=== PATIENT | female | born 1985 | race African-American/Black ===

== ENCOUNTER 2020-07-10 15:09 | Emergency (ER) | payer OTHER, SELFPAY ==
--- NOTE | ~2020-07-10 | XR_ITS ---
EXAMINATION: XR chest 2V DATE: 07/10/2020 17:40 INDICATION: Right thoracic back pain TECHNIQUE: PA and lateral views of the chest are obtained. COMPARISON: 09/10/2017 FINDINGS: The lungs are free of acute opacities. There is no pleural effusion or pneumothorax. The ca rdiomediastinal silhouette is normal. The visualized bones and soft tissues are unremarkable. Surgica l clips in the right upper quadrant are likely from prior cholecystectomy. IMPRESSION: 1. No acute cardiopulmonary abnormality. Reviewed, dictated and finalized at location A.
[2020-07-10 15:18] VITALS: BP 143/85; PULSE 78; RESP 14; TEMP 36.3; O2SAT 99
[2020-07-10 17:03] LABS: Basophils Percent Auto 0.4 % (0.2-1.2); Eosinophils Absolute Auto 0.3 K/mm3 (0-0.3); Eosinophils Percent Auto 3.1 % (0-4.4); Hematocrit 42.4 % (37.0-47.0); Hemoglobin 14.1 g/dL (12.0-15.0); Immature Granulocyte Absolute 0.03 K/mm3 (0.00-0.031); Immature Granulocyte Percent A 0.3 % (0-0.5); Lymphocytes Absolute Auto 3.49 K/mm3 (0.9-3.2); Lymphocytes Percent Auto 37.3 % (18.3-44.2); Mean Corpuscular HGB Conc 33.3 g/dl (32-36); Mean Corpuscular Hemoglobin 30.4 pg (26-34); Mean Corpuscular Volume 91.4 fl (80-100); Mean Platelet Volume 11.1 fl (7.4-10.4); Monocytes Absolute Auto 0.4 K/mm3 (0.1-0.6); Monocytes Percent Auto 4.5 % (2.6-8.5); Neutrophils Absolute Auto 5.1 K/mm3 (1.3-6.7); Neutrophils Percent Auto 54.4 % (45.5-73.1); Platelet Count Result 272 k/mm3 (150-375); Red Blood Count 4.64 M/mm3 (4.2-5.4); Red Cell Distribution Width 12.4 % (11.5-14.5); White Blood Count 9.4 K/mm3 (4.5-10.0)
[2020-07-10 17:10] LABS: Add Urine Microscopic? YES; Appearance Urine Cloudy (Clear); Bilirubin Urine Negative (Negative); Blood Urine Negative (Negative); Color Urine Yellow (Yellow); Glucose Urine UA Negative (Negative); Ketones Urine Trace mg/dL (Negative); Leukocyte Esterase Ur Negative LEU/UL (Negative); Mucus Urine Rare /lpf; Nitrate Urine Negative (Negative); Protein Urine 1+ mg/dL (Negative); RBC Urine 0-2 /hpf (0-2); Specific Grav Ur 1.021 (1.001-1.035); Squamous Epithelial Cell Urine Moderate /hpf (Few); WBC Urine 0-3 /hpf
[2020-07-10 17:14] LABS: Alanine Aminotransferase 68 U/L (4-35); Albumin Level 4.5 g/dL (3.5-5.1); Alkaline Phosphatase 68 U/L (38-126); Anion Gap 5 mmol/L (8-16); Aspartate Amino Transferase 50 U/L (14-36); Bilirubin,Total 0.4 mg/dL (0.2-1.3); Blood Urea Nitrogen 11 mg/dL (7-17); Calcium 9.5 mg/dL (8.4-10.2); Carbon Dioxide 30 mmol/L (22-30); Chloride 103 mmol/L (98-107); Estimated CRCL calculation 120 ml/min; Estimated Glomerular Filt Rate > 60; Glucose 83 mg/dL (65-105); Potassium 3.9 mmol/L (3.4-5.0); Sodium 138 mmol/L (137-145)
--- NOTE | 2020-07-10 17:31 | ED.BACK ---
HPI - Back Pain/Injury General Chief Complaint: Back Pain/Injury Stated Complaint: neck pain Time Seen by Provider: 07/10/20 16:05 Source: patient Mode of arrival: ambulatory Limitations: no limitations History of Present Illness HPI Narrative: Patient is a 35-year-old female who presents complaining of right mid back pain x2 weeks. She denies known injury. She denies taking [id number] medications. She reports a history of pyelonephritis in the past. She denies urinary complaints at this time, nausea, vomiting or diarrhea. She reports increased pain with movement. She denies radiation of pain to buttocks or leg, she denies loss of bowel or bladder control. Related Data Allergies Allergy/AdvReac Type Severity Reaction Status Date / Time No Known Allergies Allergy Verified 07/10/20 16:02 Review of Systems Review of Systems: Narrative: CONSTITUTIONAL: Denies fever, chills, or sweats. EYES: Denies visual changes, redness, or discharge. ENT: Denies rhinorrhea, congestion, sore throat, or otalgia. CARDIOVASCULAR: Denies chest pain, palpitations, or edema. RESPIRATORY: Denies cough or dyspnea. GASTROINTESTINAL: Denies abdominal pain, nausea, vomiting, or diarrhea. GENITOURINARY: Denies dysuria or hematuria. SKIN: Denies rash or itching. MUSCULOSKELETAL: Reports right-sided back pain, no radiation NEUROLOGIC: Denies headache, numbness, dizziness, or weakness. PSYCHIATRIC: Denies anxiety or depression. [facility] Past Medical History Medical History (Updated 07/10/20 @ 18:09 by ARLENE Liu) GERD (gastroesophageal reflux disease) Pyelonephritis Per patient UTI (urinary tract infection) Surgical History Surgical History (Updated 07/10/20 @ 17:39 by ARLNEE Liu) H/O tubal ligation H/O: X4 Hx of cholecystectomy Family History Family History (Updated 07/10/20 @ 17:39 by ARLENE Liu) Grandparent Cerebrovascular accident Social History Social History (Updated 07/10/20 @ 17:39 by ARLENE Liu) Smoking status: Current every day smoker Alcohol intake: current Alcohol use details: Reports recent loss of and has been drinking daily Substance use: never Living arrangements: with family Comments At the time of signature, I have reviewed and agree with nursing past medical, surgical, social, and family history unless otherwise noted. Please see nursing chart for further information. There is no relevant family history pertinent to the presenting complaint. Exam Narrative: Exam Narrative: GENERAL: Well-appearing, well-nourished, and in no acute distress. HEAD: Normocephalic, atraumatic. EYES: No redness or drainage. ENT: Mucous membranes pink and moist. . CHEST: No respiratory distress. Clear to auscultation. HEART: Regular rate and rhythm. No murmur appreciated. Normal peripheral pulses. GI: Soft, nontender without rebound, or guarding. No distention. MUSCULOSKELETAL: Tenderness with palpation at the right thoracic back and CVA EXTREMITIES: Normal range of motion. No edema. SKIN: Warm, dry, no rash. NEURO: No focal deficits. Alert and oriented x3. Gait steady. PSYCH: Normal affect. No signs of depression or anxiety. Course Vital Signs Vital signs: Vital Signs Temperature 36.3 C L 07/10/20 15:18 Pulse Rate 78 07/10/20 15:18 Respiratory Rate 14 07/10/20 15:18 Blood Pressure 143/85 H 07/10/20 15:18 Pulse Oximetry 99 07/10/20 15:18 Temperature 36.3 C L 07/10/20 15:18 Pulse Rate 78 07/10/20 15:18 Respiratory Rate 14 07/10/20 15:18 Blood Pressure 143/85 H 07/10/20 15:18 Pulse Oximetry 99 07/10/20 15:18 Reviewed-patient is informed that they may have pre-hypertension or hypertension based on a blood pressure reading. I recommend the patient call the primary care provider listed on their discharge instructions or a physician of their choice this week to arrange follow-up for further evaluation of possible
[2020-07-10] MEDS: KETOROLAC 30 MG/ML VIAL (*BKC) IM (17:53)
[2020-07-10 18:13] VITALS: BP 142/87; PULSE 85; RESP 16; O2SAT 100
== END 2020-07-10 18:18 | disposition home or self-care (01) ==
PROVIDERS: Emergency Provider Nurse Practitioner; PCP Nurse Practitioner Family
DX: M54.6 Pain in thoracic spine (principal); K21.9 Gastro-esophageal reflux disease without esophagitis; Z87.440 Personal history of urinary (tract) infections; Z87.891 Personal history of nicotine dependence
CPT/HCPCS: 36415; 71046; 80053; 81001; 81025; 85025; 96372; 99283; J1885

== ENCOUNTER 2021-11-29 18:54 | Emergency (ER) | payer OTHER, SELFPAY ==
[2021-11-29 19:03] VITALS: BP 149/92; PULSE 78; RESP 18; TEMP 36.9; O2SAT 100
--- NOTE | 2021-11-29 19:47 | ED.FEMALEGU ---
HPI - Female Genitourinary General Stated complaint: possible uti Time Seen by Provider: 11/29/21 19:20 Source: patient Mode of arrival: ambulatory Limitations: no limitations History of Present Illness HPI Narrative: Ms. Topete is a 36-year-old female patient presenting to the clinic today with complaints of possible UTI. She reports some burning with urination but states that it feels like its within the vagina. She denies any vaginal discharge. She is concerned that she may have a sexually transmitted infection. Related Data Allergies Allergy/AdvReac Type Severity Reaction Status Date / Time No Known Allergies Allergy Verified 07/10/20 16:02 Review of Systems Review of Systems: Pertinent positives per HPI. Patient denies any fever, chills, rash, headache, visual changes, dizziness, cough, runny nose, sore throat, shortness of breath, chest pain, palpitations, nausea, vomiting, diarrhea, constipation, abdominal pain PMFSH Past Medical History Medical History GERD (gastroesophageal reflux disease) Pyelonephritis Per patient UTI (urinary tract infection) Surgical History Surgical History H/O tubal ligation H/O: X4 Hx of cholecystectomy Family History Family History Grandparent Cerebrovascular accident Social History Social History Smoking status: Current every day smoker Alcohol intake: current Alcohol use details: Reports recent loss of and has been drinking daily Substance use: never Comments At the time of my signature, I reviewed and agree with the nursing past medical, surgical, social, and family history. There is no relevant family history pertinent to the patient complaint. Exam Narrative: General: Well-developed, well nourished, in no apparent distress Head: Normocephalic, atraumatic. Cardio: Regular rate and rhythm, s1 and s2 normal, no murmur appreciated. Resp: Clear to auscultation bilaterally, no rhonchi, rales, wheezing or rubs. Abdomen: Soft, pliable, bowel sounds present in all quadrants, non-tender to palpation, no CVAT tenderness. : Pelvic exam performed with Marie at bedside. Verbal consent obtained from patient. Normal external female genitalia without lesions or masses, Urinary meatus: patent without discharge, Vagina: No lesions, masses, scant amount of blood pelvic vault Cervix: pink without mass, lesions, discharge, or tenderness. Adnexa: without palpable mass or tenderness. Course Course Emergency Course: Portions of this record may have been created with voice recognition software. Level of Care: Express Care Visit Vital Signs Vital signs: Vital Signs Temperature 36.9 C 11/29/21 19:03 Pulse Rate 78 11/29/21 19:03 Respiratory Rate 18 11/29/21 19:03 Blood Pressure 149/92 H 11/29/21 19:03 Pulse Oximetry 100 11/29/21 19:03 Oxygen Delivery Room Air 11/29/21 19:03 Temperature 36.9 C 11/29/21 19:03 Pulse Rate 78 11/29/21 19:03 Respiratory Rate 18 11/29/21 19:03 Blood Pressure 149/92 H 11/29/21 19:03 Pulse Oximetry 100 11/29/21 19:03 Oxygen Delivery Room Air 11/29/21 19:03 Vital signs reviewed MDM - Female Genitourinary MDM Narrative Medical decision making narrative: At the time of visit patient is resting comfortably on the exam table. UA was negative for any sign of infection. We will get STI testing completed in the clinic today-GC, chlamydia, trichomonas. Supportive measures were discussed with the patient she voiced understanding of discharge instruction. Lab Data Labs: Urine Glucose Negative Reference Range: Negative Urine Bilirubin Negative
== END 2021-11-29 19:57 | disposition home or self-care (01) ==
PROVIDERS: Emergency Provider Nurse Practitioner Family; PCP Nurse Practitioner Family
DX: R30.0 Dysuria (principal); R10.2 Pelvic and perineal pain; F17.200 Nicotine dependence, unspecified, uncomplicated; K21.9 Gastro-esophageal reflux disease without esophagitis
CPT/HCPCS: 81003; 87491; 87591; 87661; 99214; G0463

== ENCOUNTER 2022-03-03 16:41 | Emergency (ER) | payer OTHER, SELFPAY ==
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
[2022-03-03 17:10] VITALS: BP 149/94; PULSE 77; RESP 16; TEMP 36.1; O2SAT 100
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
[2022-03-03] MEDS: IBUPROFEN 400 MG TABLET 800 MG PO (19:03)
== END 2022-03-03 19:05 | disposition home or self-care (01) ==
PROVIDERS: Emergency Provider General Practice; PCP Nurse Practitioner Family
DX: S90.32XA Contusion of left foot, initial encounter (principal); K21.9 Gastro-esophageal reflux disease without esophagitis; Z87.442 Personal history of urinary calculi; F17.200 Nicotine dependence, unspecified, uncomplicated; V03.00XA Pedestrian on foot injured in collision with car, pick-up truck or van in nontraffic accident, initial encounter
CPT/HCPCS: 73630; 99283; A9270

== ENCOUNTER 2022-03-06 09:40 | Emergency (ER) | payer OTHER, SELFPAY ==
[2022-03-06 09:46] VITALS: BP 158/98; PULSE 87; RESP 18; TEMP 36.3; O2SAT 100
[2022-03-06 11:30] VITALS: O2SAT 99
[2022-03-06 11:33] LABS: Strep Group A RT-PCR Not Detected (Negative)
[2022-03-06 11:34] LABS: Influenza A QL RT-PCR Negative (Negative); Influenza B QL RT-PCR Negative (Negative); SARS-CoV-2 RNA PCR Negative
--- NOTE | 2022-03-06 11:34 | ED.URI ---
HPI - URI/Sore Throat General Chief Complaint: Upper Respiratory Infection Stated Complaint: ST Time Seen by Provider: 03/06/22 10:27 Source: patient Mode of arrival: ambulatory Limitations: no limitations History of Present Illness HPI Narrative: Patient is a 36-year-old female who presents to the ED with report of sore throat. Patient reports she began feeling unwell with slight sore throat last night. She developed a worsening sore throat this morning, which prompted her presentation. Patient reports she was exposed to a coworker who tested positive for COVID-19 yesterday. Patient is vaccinated for COVID. She is not vaccinated for influenza. She denies any difficulty swallowing, just has pain with this. Denies difficulty breathing. Denies cough, congestion, rhinorrhea. She has had chills, but no documented fever. Related Data Allergies Allergy/AdvReac Type Severity Reaction Status Date / Time No Known Allergies Allergy Verified 07/10/20 16:02 Review of Systems Review of Systems: CONSTITUTIONAL: Reports chills. Denies fever. ENT: Reports sore throat. Denies rhinorrhea, congestion, dyphagia. CARDIOVASCULAR: Denies chest pain. RESPIRATORY: Denies cough or dyspnea. GASTROINTESTINAL: Denies abdominal pain, nausea, vomiting. All systems reviewed & are unremarkable except as noted in HPI and below PMFSH Past Medical History Medical History GERD (gastroesophageal reflux disease) Pyelonephritis Per patient UTI (urinary tract infection) Surgical History Surgical History H/O tubal ligation H/O: X4 Hx of cholecystectomy Family History Family History Grandparent Cerebrovascular accident Social History Social History Smoking status: Current every day smoker Alcohol intake: current Alcohol use details: Reports recent loss of and has been drinking daily Substance use: never Exam Narrative: GENERAL: Well appearing, morbidly obese, non-toxic, in no acute distress. HEAD: Normocephalic, atraumatic. THROAT: Airway patent. Mild posterior pharynx erythema. Few small petechial hemorrhages to uvula. Minimal tonsillar hypertrophy, no asymmetry. One small exudate to L tonsil. NECK: Supple. No adenopathy, no masses. RESPIRATORY: Airway patent, respirations nonlabored. Clear to auscultation bilaterally, no rales, rhonchi, wheezing. CARDIOVASCULAR: Regular rate and rhythm without murmurs, rubs, or gallops. Peripheral pulses 2+ and equal bilaterally. MUSCULOSKELETAL: Moves all extremities. Strength/ROM intact without gross deformities. SKIN: Warm, dry, normal color. No rashes. NEURO: A&O X3. Speech clear. Cranial nerves II-XII grossly intact. Steady gait. No ataxic movements. PSYCHIATRIC: Appropriate mood and affect. Normal interaction. Course Vital Signs Vital signs: Vital Signs Temperature 97.4 F L 03/06/22 09:46 Pulse Rate 87 03/06/22 09:46 Respiratory Rate 18 03/06/22 09:46 Blood Pressure 158/98 H 03/06/22 09:46 Pulse Oximetry 100 03/06/22 09:46 Oxygen Delivery Room Air 03/06/22 09:46 Temperature 97.4 F L 03/06/22 09:46 Pulse Rate 82 03/06/22 12:06 Respiratory Rate 18 03/06/22 12:06 Blood Pressure 137/87 03/06/22 12:06 Pulse Oximetry 97 03/06/22 12:06 Oxygen Delivery Room Air 03/06/22 11:30 MDM - URI/Sore Throat MDM Narrative Medical decision making narrative: Patient presented to ED with 1 day history of sore throat. Recent exposure to COVID-19. No other symptoms thus far. Vitals stable upon arrival. Afebrile. BP improved throughout ED stay without intervention. No signs of airway compromise on exam. Patient tolerating secretions. Patient's testing for COVID, flu, strep negative. She will be dischar
[2022-03-06] MEDS: LIDOCAINE HCL 2% VISC SOLN 15 ML UDC PO (11:47)
[2022-03-06 12:06] VITALS: BP 137/87; PULSE 82; RESP 18; O2SAT 97
== END 2022-03-06 12:07 | disposition home or self-care (01) ==
PROVIDERS: Emergency Medicine; Emergency Provider Physician Assistant; PCP Nurse Practitioner Family
DX: J02.9 Acute pharyngitis, unspecified (principal); Z20.822 Contact with and (suspected) exposure to COVID-19; K21.9 Gastro-esophageal reflux disease without esophagitis; Z87.440 Personal history of urinary (tract) infections
CPT/HCPCS: 87636; 87651; 99283

== ENCOUNTER 2022-03-07 16:15 | Emergency (ER) | payer OTHER, SELFPAY ==
[2022-03-07 16:28] VITALS: BP 138/73; PULSE 88; RESP 20; TEMP 36.9; O2SAT 99
--- NOTE | 2022-03-07 16:36 | ED.URI ---
HPI - URI/Sore Throat General Chief Complaint: Upper Respiratory Infection Stated Complaint: Sore Throat Time Seen by Provider: 03/07/22 17:00 Source: patient and RN notes reviewed Mode of arrival: ambulatory Limitations: no limitations History of Present Illness HPI Narrative: 36-year-old female presents concern for 2 day history of sore throat, painful swallowing, headache. Reports she was seen in the emergency room yesterday and tested negative for strep, flu, COVID. She reports pain is a 10/10. She denies known sick contacts. MD elicited complaint: sore throat Related Data Home Medications Medication Instructions Recorded Confirmed cyanocobalamin (vitamin B-12) 500 500 mcg DAILY 03/07/22 03/07/22 mcg tablet metformin 500 mg tablet,extended 500 mg PO BID 03/07/22 03/07/22 release 24 hr Allergies Allergy/AdvReac Type Severity Reaction Status Date / Time No Known Allergies Allergy Verified 03/07/22 16:44 Review of Systems Review of Systems: CONSTITUTIONAL: Reports malaise. Denies chills, sweats, or fever. EYES: Denies visual changes, redness, or discharge. ENT: Denies rhinorrhea, congestion, sinus pain, otalgia. Reports sore throat. CARDIOVASCULAR: Denies chest pain, palpitations, or edema. RESPIRATORY: Denies cough. Denies dyspnea. GASTROINTESTINAL: Denies abdominal pain, nausea, vomiting, diarrhea SKIN: Denies rash or itching. MUSCULOSKELETAL: Reports myalgia. NEUROLOGIC: Reports headache. All systems reviewed & are unremarkable except as noted in HPI and below PMFSH Past Medical History Medical History GERD (gastroesophageal reflux disease) Pyelonephritis Per patient UTI (urinary tract infection) Surgical History Surgical History H/O tubal ligation H/O: X4 Hx of cholecystectomy Family History Family History Grandparent Cerebrovascular accident Social History Social History Smoking status: Current every day smoker Alcohol intake: current Alcohol use details: Reports recent loss of and has been drinking daily Substance use: never Comments At time of signature, agree with nursing past medical, surgical, social and family history. There is no relevant family history pertinent to the presenting complaint Exam Narrative: GENERAL: Nontoxic-appearing and in no acute distress. HEAD: Normocephalic EYES: PERRLA, conjunctivae clear ENT: Nares clear, no discharge. Mucous membranes moist. TM pearly novak with dull light reflex bilaterally; no tragal tenderness. Oropharynx erythematous without lesions. Tonsils enlarged 3+ with copious white exudate, no drooling, no hoarseness, no trismus, uvula midline. NECK: Supple. No lymphadenopathy CHEST: Clear to auscultation, breath sounds equal. No wheezing, rhonchi, rales, or stridor. No respiratory distress, speaks in full sentences. HEART: Regular rate and rhythm. No murmur heard. SKIN: Warm, dry, no rash. NEURO: Alert and oriented x3. PSYCH: Normal mood and affect Course Course Emergency Course: Patient is aware of diagnosis, understands and agrees to treatment plan. Anticipatory guidance given. Patient agrees to follow-up as directed and is aware of reasons to seek care at the emergency department. Portions of this record may have been created with voice recognition software Level of Care: Express Care Visit Vital Signs Vital signs: Vital Signs Temperature 98.5 F 03/07/22 16:28 Pulse Rate 88 03/07/22 16:28 Respiratory Rate 20 03/07/22 16:28 Blood Pressure 138/73 03/07/22 16:28 Pulse Oximetry 99 03/07/22 16:28 Oxygen Delivery Room Air 03/07/22 16:28 Temperature 98.5 F 03/07/22 16:28 Pulse Rate 88 03/07/22 16:28 Respiratory Rate 20 03/07
== END 2022-03-07 17:12 | disposition home or self-care (01) ==
PROVIDERS: Emergency Provider Nurse Practitioner; PCP Nurse Practitioner Family
DX: J03.90 Acute tonsillitis, unspecified (principal); Z20.822 Contact with and (suspected) exposure to COVID-19; F17.200 Nicotine dependence, unspecified, uncomplicated; K21.9 Gastro-esophageal reflux disease without esophagitis
CPT/HCPCS: 36416; 86308; 87081; 87426; 87880; 99213; C9803; G0463

== ENCOUNTER 2022-11-21 20:31 | Emergency (ER) | payer OTHER, SELFPAY ==
[2022-11-21] VITALS (7 sets, daily range): BP systolic 149–151; BP diastolic 94–95; PULSE 84; RESP 16; TEMP 36.2; O2SAT 98–100
--- NOTE | ~2022-11-21 | CT_ITS ---
EXAMINATION: CT abdomen pelvis w con DATE: 11/21/2022 22:55 INDICATION: Generalized abdominal TECHNIQUE: Computed tomography (CT) of the abdomen and pelvis was performed with 100 mL Omnipaque-350 intravenous contrast. Automated exposure control and iterative reconstruction technique were employe d. The dose-length product was 1597.98 mGy-cm. COMPARISON: 10/21/2016. FINDINGS: Lower thorax: Unremarkable Liver: Simple left lobe cyst. Subcentimeter hypodensities that are too small to characterize but also likely represent cysts. Biliary/Gallbladder: Gallbladder is absent. No bile duct dilation. Pancreas: No mass or duct dilation. Spleen: Normal. Adrenals:No mass. Kidneys: Mild right cortical scarring. Simple left midpole cyst. No calcification or suspicious mass. No hydronephrosis. GI tract: No small or large bowel dilation. Normal appendix. Mesentery/Peritoneum: No ascites, mass, or free air. Retroperitoneum: No mass. Pelvis: Pelvic organs are within normal limits. Soft Tissues: Soft tissues and body wall unremarkable. Bones: No acute osseous finding. IMPRESSION: No acute abdominopelvic process detected. Reviewed, dictated and finalized at location K.
[2022-11-21 21:04] LABS: Basophils Absolute Auto 0.1 K/mm3 (0.0-0.1); Basophils Percent Auto 0.4 % (0.2-1.2); Eosinophils Absolute Auto 0.4 K/mm3 (0-0.3); Eosinophils Percent Auto 3.3 % (0-4.4); Hematocrit 39.6 % (37.0-47.0); Hemoglobin 12.9 g/dL (12.0-15.0); Immature Granulocyte Absolute 0.03 K/mm3 (0.00-0.031); Immature Granulocyte Percent A 0.3 % (0-0.5); Lymphocytes Absolute Auto 3.88 K/mm3 (0.9-3.2); Lymphocytes Percent Auto 34.9 % (18.3-44.2); Mean Corpuscular HGB Conc 32.6 g/dl (32-36); Mean Corpuscular Hemoglobin 29.4 pg (26-34); Mean Corpuscular Volume 90.2 fl (80-100); Monocytes Absolute Auto 0.6 K/mm3 (0.1-0.6); Monocytes Percent Auto 5.5 % (2.6-8.5); Neutrophils Absolute Auto 6.2 K/mm3 (1.3-6.7); Neutrophils Percent Auto 55.6 % (45.5-73.1); Platelet Count Result 254 k/mm3 (150-375); Red Blood Count 4.39 M/mm3 (4.2-5.4); Red Cell Distribution Width 12.8 % (11.5-14.5); White Blood Count 11.1 K/mm3 (4.5-10.0)
[2022-11-21 21:15] LABS: Appearance Urine Cloudy (Clear); Bacteria Urine 1+ /hpf; Bilirubin Urine Negative (Negative); Blood Urine Negative (Negative); Color Urine Dark Yellow (Yellow); Glucose Urine UA Negative (Negative); Ketones Urine Negative (Negative); Leukocyte Esterase Ur Negative LEU/UL (Negative); Nitrate Urine Negative (Negative); Non Pathogenic Casts 0-2; Protein Urine 1+ mg/dL (Negative); RBC Urine 0-2 /hpf (0-2); Specific Grav Ur 1.026 (1.001-1.035); Squamous Epithelial Cell Urine Moderate /hpf (Few)
[2022-11-21 21:17] LABS: Add Urine Microscopic? YES
[2022-11-21 21:21] LABS: Alanine Aminotransferase 36 U/L (6-35); Albumin Level 4.3 g/dL (3.5-5.1); Alkaline Phosphatase 68 U/L (38-126); Anion Gap 12 mmol/L (8-16); Aspartate Amino Transferase 34 U/L (14-36); Bilirubin,Total 0.4 mg/dL (0.2-1.3); Blood Urea Nitrogen 10 mg/dL (7-17); Calcium 8.9 mg/dL (8.4-10.2); Carbon Dioxide 28 mmol/L (22-30); Chloride 97 mmol/L (98-107); Estimated CRCL calculation 137 ml/min; Estimated Glomerular Filt Rate > 60; Glucose 91 mg/dL (65-110); Lipase 136 U/L (23-300); Potassium 3.8 mmol/L (3.4-5.0); Sodium 137 mmol/L (137-145)
--- NOTE | 2022-11-21 22:34 | ED.GENADULT ---
HPI - General Adult General Chief complaint: Abdominal Pain Stated complaint: abd pain Time Seen by Provider: 11/21/22 22:04 History of Present Illness HPI narrative: Patient is a 37-year-old female who presents the emergency department with chief complaint of abdominal pain. Patient reports she is having pain in the right lower quadrant area patient reports no radiation reports the pain is worse with movement and improved with rest. Patient denies fever reports she feels a little nauseated the patient reports prior cholecystectomy and C-sections in the past patient does report that she still has her appendix. Related Data Home Medications Medication Instructions Recorded Confirmed cyanocobalamin (vitamin B-12) 500 500 mcg DAILY 03/07/22 03/07/22 mcg tablet metformin 500 mg tablet,extended 500 mg PO BID 03/07/22 03/07/22 release 24 hr Allergies Allergy/AdvReac Type Severity Reaction Status Date / Time No Known Allergies Allergy Verified 11/21/22 21:51 Review of Systems Review of Systems: A 10 system review of systems was completed on the patient and is negative except for what is stated in the HPI. Nursing and ancillary documentation was reviewed. [facility] Past Medical History Medical History GERD (gastroesophageal reflux disease) Pyelonephritis Per patient UTI (urinary tract infection) Surgical History Surgical History H/O tubal ligation H/O: X4 Hx of cholecystectomy Family History Family History Grandparent Cerebrovascular accident Social History Social History Smoking status: Current every day smoker Alcohol intake: current Alcohol use details: Reports recent loss of and has been drinking daily Substance use: never Living arrangements: with family Exam Narrative: GENERAL: Well-appearing, well-nourished, and in no acute distress. HEAD: Normocephalic, atraumatic. EYES: PERRLA and EOMI. ENT: Nares clear, no rhinorrhea or epistaxis. Mucous membranes moist. NECK: Supple. CHEST: Clear to auscultation. No respiratory distress. HEART: Regular rate and rhythm. No murmur heard. Normal peripheral pulses. ABDOMEN: Soft, diffusely tender to palpation, nondistended, normal active bowel sounds. EXTREMITIES: Normal range of motion. No edema. SKIN: Warm, dry, no rash. NEURO: No focal deficits. Alert and oriented x3. PSYCH: Normal mood and affect. Course Vital Signs Vital signs: Vital Signs Temperature 36.2 C L 11/21/22 20:39 Pulse Rate 84 11/21/22 20:39 Respiratory Rate 16 11/21/22 20:39 Blood Pressure 151/94 H 11/21/22 20:39 Pulse Oximetry 100 11/21/22 20:39 Oxygen Delivery Room Air 11/21/22 20:39 Temperature 36.2 C L 11/21/22 20:39 Pulse Rate 84 11/21/22 20:39 Respiratory Rate 16 11/21/22 20:39 Blood Pressure 149/95 H 11/21/22 22:46 Pulse Oximetry 100 11/21/22 22:46 Oxygen Delivery Room Air 11/21/22 20:39 Medical Decision Making [facility] Narrative Medical decision making narrative: Differential diagnosis includes UTI, bowel obstruction, appendicitis, diverticulitis Laboratory studies were obtained on the patient which showed a white count of 11.1 electrolytes were otherwise normal urinalysis showed 6-10 white blood cells and 1+ bacteria CT scan of the abdomen pelvis showed no acute intra-abdominal pathology The patient was started on Keflex and will be discharged home to follow-up with her primary care provider Vital Signs Vital Signs: Vital Signs Temperature 36.2 C L 11/21/22 20:39 Pulse Rate 84 11/21/22 20:39 Respiratory Rate 16 11/21/22 20:39 Blood Pressure 151/94 H 11/21/22 20:39 Pulse Oximetry 100 11/21/22 20:39 Oxygen Delivery Room A
[2022-11-21] MEDS: ONDANSETRON INJ 4 MG/2 ML VIAL IV PUSH (22:38)
[2022-11-21] MEDS: MORPHINE SULFATE (*CRX) 4 MG/ML INJ IV PUSH (22:38)
[2022-11-21] MEDS: SODIUM CHLORIDE 0.9% IV 1,000 ML 999 ML IV CONT (22:39)
--- NOTE | 2022-11-21 23:19 | PC.NURSE ---
pt care given to IRASEMA Kilpatrick. all questions answered.
[2022-11-21 23:39] LABS: Pregnancy On Board Control Positive; Urine Pregnancy Test Negative
== END 2022-11-22 00:05 | disposition home or self-care (01) ==
PROVIDERS: Emergency Provider Emergency Medicine
DX: N39.0 Urinary tract infection, site not specified (principal); R10.84 Generalized abdominal pain; F17.200 Nicotine dependence, unspecified, uncomplicated
CPT/HCPCS: 36415; 74177; 80053; 81001; 81025; 83690; 85025; 87086; 96361; 96374; 96375; 99284; J2270; J2405; J7030; Q9967

== ENCOUNTER 2022-12-30 19:42 | Emergency (ER) | payer OTHER, SELFPAY ==
[2022-12-30 20:00] VITALS: BP 153/90; PULSE 82; RESP 20; TEMP 37.1; O2SAT 98
[2022-12-30 20:01] LABS: Glucose Point of Care 89 mg/dl (65-105)
--- NOTE | 2022-12-30 20:18 | ED.DIZZY ---
HPI - Dizziness General Chief Complaint: Dizziness Stated Complaint: dizzy spells , headaches Time Seen by Provider: 12/30/22 20:18 Source: patient Mode of arrival: ambulatory Limitations: no limitations History of Present Illness HPI Narrative: 37-year-old female presents with complaint of headache, dizziness, bilateral ear pain starting last night. Afebrile. Denies nasal congestion, sinus pressure. No cough, sore throat. Denies nausea vomiting diarrhea. All systems reviewed and negative except as noted above. Related Data Home Medications Medication Instructions Recorded Confirmed metformin 500 mg tablet,extended 500 mg PO BID 03/07/22 03/07/22 release 24 hr Allergies Allergy/AdvReac Type Severity Reaction Status Date / Time No Known Allergies Allergy Verified 12/30/22 20:06 Review of Systems Review of Systems: CONSTITUTIONAL: Denies fever, chills, or sweats. EYES: Denies visual changes, redness, or discharge. ENT: Denies rhinorrhea, congestion, sore throat . Reports bilateral ear pain. CARDIOVASCULAR: Denies chest pain, palpitations, or edema. RESPIRATORY: Denies cough or dyspnea. GASTROINTESTINAL: Denies abdominal pain, nausea, vomiting, or diarrhea. GENITOURINARY: Denies dysuria or hematuria. SKIN: Denies rash or itching. MUSCULOSKELETAL: Denies back pain, joint pain, or myalgia. NEUROLOGIC: Reports headache, dizziness. Denies numbness, or weakness. PSYCHIATRIC: Denies anxiety or depression. All other systems reviewed are negative, except as documented in HPI. [facility] Past Medical History Medical History GERD (gastroesophageal reflux disease) Pyelonephritis Per patient UTI (urinary tract infection) Surgical History Surgical History H/O tubal ligation H/O: X4 Hx of cholecystectomy Family History Family History Grandparent Cerebrovascular accident Social History Social History Smoking status: Current every day smoker Alcohol intake: current Alcohol use details: Reports recent loss of and has been drinking daily Substance use: never Living arrangements: with family Comments At time of signature, agree with nursing past medical, surgical, social and family history. There is no relevant family history pertinent to the presenting complaint. Exam Narrative: GENERAL: This is a well-nourished, well-developed patient, in no apparent distress. HEAD: normocephalic, atraumatic. EYES: PERRL. Sclera clear/white. Vision is grossly intact. EARS: External ears normal, auditory canals clear and without drainage, fluid to bilateral TMs with erythema, no perforation. Hearing grossly intact. NOSE: External nose normal with no obvious nasal discharge, nares without redness, no rhinorrhea. THROAT: Mucous membranes moist, posterior pharynx clear. NECK: Neck supple, non-tender without lymphadenopathy, masses or thyromegaly. CARDIOVASCULAR: Regular rate and rhythm without murmurs, gallops, or rubs. RESPIRATORY: Clear to auscultation. Breath sounds equal bilaterally. No wheezes, rales, or rhonchi. SKIN: warm, Dry, intact with no suspicious lesions or rash, good texture and turgor. NEURO: awake, alert, and oriented to person, place and time. There were no obvious focal neurologic abnormalities. EXTREMITIES: No joint tenderness, effusion, or edema noted. Course Course Level of Care: Express Care Visit Vital Signs Vital signs: Vital Signs Temperature 37.1 C 12/30/22 20:00 Pulse Rate 82 12/30/22 20:00 Respiratory Rate 20 12/30/22 20:00 Blood Pressure 153/90 H 12/30/22 20:00 Pulse Oximetry 98 12/30/22 20:00 Oxygen Delivery Room Air 12/30/22 20:00 Temperature 37.1 C 12/30/22 20:00 Puls
== END 2022-12-30 20:32 | disposition home or self-care (01) ==
PROVIDERS: Emergency Provider Nurse Practitioner Family
DX: H65.03 Acute serous otitis media, bilateral (principal); R42 Dizziness and giddiness; F17.200 Nicotine dependence, unspecified, uncomplicated
CPT/HCPCS: 82948; 99213; G0463

== ENCOUNTER 2024-07-21 15:49 | Emergency (ER) | payer SELFPAY ==
[2024-07-21 15:56] VITALS: PULSE 75; RESP 16; TEMP 36.6; O2SAT 98
[2024-07-21] MEDS: KETOROLAC 30 MG/ML VIAL (*BKC) IM (16:24)
--- NOTE | 2024-07-21 16:36 | ED_ITS ---
HPI - Back Pain/Injury General Chief Complaint: Back Pain/Injury Stated Complaint: Back pain Time Seen by Provider: 07/21/24 16:03 History of Present Illness HPI Narrative: Patient presenting here with back pain, started after she was lifting something heavy at work. No focal numbness or weakness to her legs, able to ambulate without issues and go to the bathroom without issues. Tried taking ibuprofen and has tried heat packs at home without much improvement. Related Data Home Medications ?Medication ?Instructions ?Recorded ?Confirmed ?Last Taken ?Type metformin 500 mg tablet,extended 500 mg PO BID 03/07/22 03/07/22 Unknown History release 24 hr Allergies Allergy/AdvReac Type Severity Reaction Status Date / Time No Known Allergies Allergy Verified 07/21/24 15:50 Review of Systems Review of Systems: All systems reviewed & are unremarkable except as noted in HPI and below PMFSH Past Medical History Medical History GERD (gastroesophageal reflux disease) Pyelonephritis Per patient UTI (urinary tract infection) Surgical History Surgical History H/O tubal ligation H/O: X4 Hx of cholecystectomy Family History Family History Grandparent Cerebrovascular accident Social History Social History Smoking status: Current every day smoker Alcohol intake: current Alcohol use details: Reports recent loss of and has been drinking daily Substance use: never Living arrangements: with family Exam Narrative: EXAMINATION OF ORGAN SYSTEMS/BODY AREAS: Constitutional: Vital signs per nursing GENERAL:[No acute distress, non-toxic appearing.] HEAD: Normal with no signs of head trauma. EYES: EOMI, conjunctiva normal ENT: Hearing grossly intact LUNGS: Nonlabored breathing. HEART: [Regular rate and rhythm] ABD: [Soft], [nontender to palpation] EXT: Normal range of motion; some slight tenderness to palpation to the lower back SKIN: [No rashes or lesions.] NEURO: [Alert and oriented x 3. No gross focal sensory or strength deficits.] PSYCH: Normal affect Course Vital Signs Vital signs: Vital Signs Temperature 97.9 F 07/21/24 15:56 Pulse Rate 75 07/21/24 15:56 Respiratory Rate 16 07/21/24 15:56 Pulse Oximetry 98 07/21/24 15:56 Oxygen Delivery Room Air 07/21/24 15:56 Temperature 97.9 F 07/21/24 15:56 Pulse Rate 75 07/21/24 15:56 Respiratory Rate 16 07/21/24 15:56 Pulse Oximetry 98 07/21/24 15:56 Oxygen Delivery Room Air 07/21/24 15:56 MDM - Back Pain/Injury MDM Narrative Medical decision making narrative: ED COURSE AND MEDICAL DECISION MAKINF with acute back pain. Normal motor and sensory exam. Patient able to ambulate. No evidence of acute cord compression, osteomyelitis/discitis or cauda equina without saddle anesthesia, urinary retention/incontinence, numbness/tingling in lower extremities, fever, history of IV drug use, cancer or immunosuppression. Doubt AAA or aortic dissection without severe pain/discomfort or any neurovascular deficits. [Ketorolac 30mg IM] given for symptomatic relief. At this time, I do not believe the patient requires imaging studies. Will reevaluate the need for further investigations after the medications. [I discussed management of acute back pain in detail, explaining the need to remain active and the goals of pain control.] Patient is given return precautions and instructed to come back at any point in time for worsening pain, fevers, weakness, difficulty walking, urinary or fecal incontinence. Patient e xpressed understanding of instructions. PCP/Spine surgery follow-up provided. Discharge Plan Discharge Clinical Impression: Strain of lumbar region Patient Disposition: Home Condition: Stable Instructions: Acute Low Back Pain (ED) Additional Instructions: Please call for follow up with the PCP; if your symptoms don't improve in a few weeks you may need MRI or PT for further evaluation and treatment. Please come back if pain worsens or you start having new numbness/weakness to your legs or anything else concerning Patient Language: Citizen Of [place] Prescriptions: New methocarbamol 750 mg tablet 750 mg PO TID PRN (Reason: muscle spasm) Qty: 30 0RF lidocaine 5 % adhesive patch,medicated 1 patch topical DAILY Qty: 15 0RF Rx Instructions: leave on most painful area for up to 12 hrs No Action metformin 500 mg tablet extended release 24 hr 500 mg PO BID Patient Comments: is out of medication and does not have a primary care physician amoxicillin 875 mg tablet 875 mg PO Q12H 10 Days Qty: 20 0RF loratadine [Claritin] 10 mg tablet 10 mg PO DAILY Qty: 30 0RF meclizine 25 mg tablet 25 mg PO Q6-8H PRN (Reason: dizziness) Qty: 30 0RF methylprednisolone [Medrol (Charlie)] 4 mg tablets,dose pack See Rx Instructions PO .COMPLEX Qty: 21 0RF Rx Instructions: orally per package directions Follow-up/Referrals: Maryse Mauricio MD [Physician] - 2 Days PHYSICIAN,[facility]TERN[facility] [Non-Staff] - Tyron Rodriguez MD [Physician] - 2 Days Stand Alone Forms: Work/School Release IP
--- OUTSIDE RECORDS SUMMARY | 2024-07-21 16:48 | XMS_ITS | Data Portability ---
Author Organization JOE NICOLEJuan Carlos Address [address] [place] [address] Care Team Providers Care Tree Care Foreman Name Role Phone SELENA CHAKRABORTY Manufacturing Shift Supervisor [phone] Assessment No assessment recorded. Plan of Treatment Reminders Order Date Submit Date Provider Last Modified By Organization Details Last Modified Time Details Appointments None recorded . Lab vaginal pathogen s panel, AVTAR+prob e, vaginal fluid 2022 023 [facility], [address], [place], [address], 3 11:22:20 CBC w/ auto diff 2022 023 [facility], [address], [place], [address], 3 06:19:00 iron + total iron-bin ding capacity (TIBC), serum 2022 023 [facility], [address], [place], [address], 3 11:22:22 TSH + free T4, serum 2022 023 [facility], [address], [place], [address], 3 11:22:21 ferritin , serum or plasma 2022 023 [facility], [address], [place], [address], 3 11:22:22 urinalys is, dipstick 2022 023 [email or web address] In-Office Order, Internal Use Only DO Not Attach Compendium DO Not Attach Compendium, Do Not Delete/merge, [id number] 3 16:21:38 treponem a pallidum IgG + IgM Ab, QL, IA, serum 2022 023 [facility], [address], [place], [address], 3 03:07:55 HBsAg (hepatit is B surface Ag), EIA, serum 2022 023 [facility], [address], [place], [address], 3 03:07:55 Hepatiti s C IgG Ab, qual, serum 2022 023 [facility], [address], [place], [address], 3 03:07:53 chlamydi a trachoma tis + neisseri a gonorrho eae + trichomo emre vaginali s DNA panel, AVTAR+prob e, unspecif ied specimen 2022 023 [facility], [address], [place], [address], 3 03:07:54 HIV 1 + 2, meaningf ul use set 2022 023 [facility], [address], [place], [address], 3 03:07:56 vaginal pathogen s panel, AVTAR+prob e, vaginal fluid 2022 023 [facility], [address], [place], [address], 3 03:07:51 urinalys is, dipstick 2022 023 In-Office Order, Internal Use Only DO Not Attach Compendium DO Not Attach Compendium, Do Not Delete/merge, [id number] 3 09:38:58 culture, urine 2022 023 [facility], [address], [place], [address], 3 03:07:52 pap, IG + reflex HPV 2022 023 [facility], [address], [place], [address], 3 14:14:11 treponem a pallidum IgG + IgM Ab, QL, IA, serum 2022 023 [facility], [address], [place], [address], 3 03:07:53 HBsAg (hepatit is B surface Ag), EIA, serum 2022 023 [facility], [address], [place], [address], 3 03:07:52 Hepatiti s C IgG Ab, qual, serum 2022 023 [facility], [address], [place], [address], 3 03:07:51 HIV 1 + 2, meaningf ul use set 2022 023 [facility], [address], [place], [address], 3 03:07:53 Referral None recorded . Procedures None recorded . Surgeries None recorded . Imaging US, pelvis, transabd ominal + transvag inal 2022 023 [facility] ([facility]), [address] [facility] [place], [address], 3 09:22:17 Medication Orders Loestrin Fe 04/26 (28-Day) 1 mg-20 mcg (21)/75 mg (7) tablet 2022 023 [email or web address] [facility]acy #[id number], [address], [place], [address], 3 09:00:27 nitrofur antoin monohydr ate/macr ocrystal s 100 mg capsule 2022 023 [facility] #[id number], [address], [place], [address], 3 14:00:01 mupiroci n 2 % topical ointment 2020 021 [facility]armacy #[id number], [address], [place], [address], 3 13:59:52 fluconaz ole 150 mg tablet 2020 021 [facility] #[id number], [address], [place], [place], [id number], 1 15:31:07 nystatin 100,000 unit/gra m topical cream 2020 021 [facility] #[id number], [address], [place], [place], [id number], 3 14:00:00 Patient TargetsNo targets recorded. Patient Instructions Encounter Date Encounter Id Patient Instructions Last Modified By Organization Details Last Modified Time 12/26/2020 [id number] folliculitis: ca re instructions Not available 12/26/2020 15:59:05 06/28/2022 [id number] A healthy lifest yle: care instructions Not available 06/28/2022 09:52:53 Well Visit, Ages 18 to 65: Care Instructions Not available 06/28/2022 09:38:59 safer sex: care instructions Not available 06/28/2022 09:38:59 MARY Haddad Discussed with BRADFORD [email or web address] Not available 06/28/2022 12:21:23 09/12/2022 [id number] safer sex: care instructions Not available 09/12/2022 15:45:10 03/06/2023 [id number] vaginitis: care instructions [email or web address] Not available 03/06/2023 14:28:38 When You Want to Lose Weight: Care Instructions [email or web address] Not available 03/06/2023 14:28:37 heavy menstrual periods: care instructions Not available 03/06/2023 14:28:38 learning about b irth control: combination pills Not available 03/06/2023 14:28:37 Discussed option s for excessive bleeding Will do blood work today Will start BCP for bleeding control Advised patient on taking medication and side effects as well as contraindications while using BCP CHART REVIEWED [email or web address] Not available 03/11/2023 18:00:52 Reason for Referral None Reported. Results Created Date Observation Date Name Description Value Unit Range Abnormal Flag Note LastModifiedBy Organization Detail LastModifiedTime 05/26/1905/31/2020 bacte rial vagin osis + vagin itis panel , vagin al atopobium vaginae Low - 0 score Not Available [facility] ([facility]) [address] [facility], [place], [address], 05/31/2020 20:08:00 05/26/19 21 05/31/2020 bacte rial vagin osis + vagin itis panel , vagin al bvab 2 Modera te - 1 score Not Available [facility] ([facility]) [address] [place], [address], 05/31/2020 20:08:00 05/26/19 21 05/31/2020 bacte rial vagin osis + vagin itis panel , vagin al megasphaera 1 Low - 0 score Calcu late total score by lorenzo barfield the 3 indiv idual bacte rial vagin osis (BV) marke r score s toget her. Total score is inter prete d as follo ws: Total score 0-1: Indic ates the absen ce of BV. Total score 2: Indet ermin ate for BV. Addit ional clini mohan data shoul d be evalu ated to estab amina a diagn osis. Total score 3-6: Indic ates the prese nce of BV. This test was devel oped and its perfo rmanc e junior cteri stics deter mined by [facility]. It has not been clear ed or appro rocco by the Food and Drug Admin istra tion. Not Available [facility] ([facility]) [address] [facility], [place], [address], 05/31/2020 20:08:00 05/26/19 21 05/31/2020 bacte rial vagin osis + vagin itis panel , vagin al julian albicans, AVTAR Negati ve negati ve Not Available [facility] ([facility]) [address] [place], [address], 05/31/2020 20:08:00 05/26/19 21 05/31/2020 bacte rial vagin osis + vagin itis panel , vagin al julian glabrata, AVTAR Negati ve negati ve Not Available [facility] ([facility]) [address] [place], [address], 05/31/2020 20:08:00 05/26/19 21 05/31/2020 bacte rial vagin osis + vagin itis panel , vagin al trich vag by AVTAR Negati ve negati ve Not Available [facility] ([facility]) [address] [place], [address], 05/31/2020 20:08:00 05/26/19 21 05/31/2020 bacte rial vagin osis + vagin itis panel , vagin al chlamydia trachomatis, AVTAR Negati ve negati ve Not Available [facility] ([facility]) [address] [place], [address], 05/31/2020 20:08:00 05/26/19 21 05/31/2020 bacte rial vagin osis + vagin itis panel , vagin al neisseria gonorrhoeae, AVTAR Negati ve negati ve Not Available [facility] ([facility]) [address] [place], [address], 05/31/2020 20:08:00 05/26/19 21 05/31/2020 HSV (1+2) DNA, qual, PCR, unspe cifie d speci men hsv 1 AVTAR Negati ve negati ve Not Available [facility] ([facility]) [address] [place], [address], 05/31/2020 20:08:00 05/26/19 21 05/31/2020 HSV (1+2) DNA, qual, PCR, unspe cifie d speci men hsv 2 AVTAR Negati ve negati ve Not Available [facility] ([facility]) [address] [place], [address], 05/31/2020 20:08:00 05/26/19 21 05/28/2020 cultu re, vagin al/re ctal, strep tococ cus group B strep gp B AVTAR Negati ve negati ve Cente rs for Disea se Contr ol and Preve ntion (CDC) and Ameri can Congr ess of Obste trici ans and Gynec ologi sts (ACOG ) guide lines for preve ntion of perin atal group B strep tococ mohan (GBS) disea se speci fy co-co llect ion of a vagin al and recta l swab speci men to maxim ize sensi tivit y of GBS detec tion. Per the CDC and ACOG, swabb ing both the lower vagin a and rectu m subst antia lly incre ases the yield of detec tion gera red with sampl ing the vagin a alone . Penic illin G, ampic illin , or cefaz alvina are indic ated for intra partu m proph ylaxi s of perin atal GBS colon izati on. Refle x susce ptibi lity testi ng shoul d be perfo rmed prior to use of clind amyci n only on GBS isola ulisses from penic illin -marito rgic women who are consi dered a high risk for anaph ylaxi s. Treat ment with vanco mycin witho ut addit ional testi ng is warra nted if resis tance to clind amyci n is noted . Not Available [facility] ([facility]) [address] [place], [address], 05/31/2020 20:08:01 02/08/20 21 02/13/2021 NUSWA B VG+, HSV atopobium vaginae Low - 0 score Not Available [facility] ([facility]) [address] [place], [address], 02/15/2021 07:13:16 02/08/20 21 02/13/2021 NUSWA B VG+, HSV bvab 2 Modera te - 1 score Not Available [facility] ([facility]) [address] [place], [address], 02/15/2021 07:13:16 02/08/20 21 02/13/2021 NUSWA B VG+, HSV megasphaera 1 Low - 0 score Calcu late total score by lorenzo barfield the 3 indiv idual bacte rial vagin osis (BV) marke r score s toget her. Total score is inter prete d as follo ws: Total score 0-1: Indic ates the absen ce of BV. Total score 2: Indet ermin ate for BV. Addit ional clini mohan data shoul d be evalu ated to estab amina a diagn osis. Total score 3-6: Indic ates the prese nce of BV. This test was devel oped and its perfo rmanc e junior cteri stics deter mined by [facility]. It has not been clear ed or appro rocco by the Food and Drug Admin istra tion. Not Available [facility] ([facility]) [address] [place], [address], 02/15/2021 07:13:16 02/08/2002/13/2021 NUSWA B VG+, HSV julian albicans, AVTAR Negati ve negati ve Not Available [facility] ([facility]) [address] [place], [address], 02/15/2021 07:13:16 02/08/2002/13/2021 NUSWA B VG+, HSV julian glabrata, AVTAR Negati ve negati ve Not Available [facility] ([facility]) [address] [place], [address], 02/15/2021 07:13:16 02/08/20 21 02/14/2021 NUSWA B VG+, HSV trich vag by AVTAR Negati ve negati ve Not Available [facility] ([facility]) [address] [place], [address], 02/15/2021 07:13:16 02/08/20 21 02/14/2021 NUSWA B VG+, HSV chlamydia trachomatis, AVTAR Negati ve negati ve Not Available [facility] ([facility]) [address] [place], [address], 02/15/2021 07:13:16 02/08/20 21 02/14/2021 NUSWA B VG+, HSV neisseria gonorrhoeae, AVTAR Negati ve negati ve Not Available [facility] ([facility]) [address] [facility], [place], [address], 02/15/2021 07:13:16 02/08/20 21 02/15/2021 NUSWA B VG+, HSV hsv 1 AVTAR Negati ve negati ve Not Available [facility] ([facility]) [address] [facility], [place], [address], 02/15/2021 07:13:16 02/08/20 21 02/15/2021 NUSWA B VG+, HSV hsv 2 AVTAR Negati ve negati ve Not Available [facility] ([facility]) [address] [facility], [place], [address], 02/15/2021 07:13:16 02/08/20 21 02/09/2021 STREP GP B AVTAR strep gp B AVTAR Negati ve negati ve Cente rs for Disea se Contr ol and Preve ntion (CDC) and Ameri can Congr ess of Obste trici ans and Gynec ologi sts (ACOG ) guide lines for preve ntion of perin atal group B strep tococ mohan (GBS) disea se speci fy co-co llect ion of a vagin al and recta l swab speci men to maxim ize sensi tivit y of GBS detec tion. Per the CDC and ACOG, swabb ing both the lower vagin a and rectu m subst antia lly incre ases the yield of detec tion gera red with sampl ing the vagin a alone . Penic illin G, ampic illin , or cefaz alvina are indic ated for intra partu m proph ylaxi s of perin atal GBS colon izati on. Refle x susce ptibi lity testi ng shoul d be perfo rmed prior to use of clind amyci n only on GBS isola ulisses from penic illin -marito rgic women who are consi dered a high risk for anaph ylaxi s. Treat ment with vanco mycin witho ut addit ional testi ng is warra nted if resis tance to clind shy n is noted . Not Available [facility] ([facility]) [address] [facility], [place], [address], 02/15/2021 07:13:17 06/29/19 23 06/29/2022 HCV ANTIB MADHAV RFX TO QUANT PCR HCV Ab NON REACTI VE nonrea ctive Not Available [facility] ([facility]) [address] [facility], [place], [address], 07/02/2022 03:07:50 06/29/19 23 07/01/2022 NUSWA B VAGIN ITIS PLUS (VG+) atopobium vaginae HIGH - 2 score abnormal Not Available [facility] ([facility]) [address] [facility], [place], [address], 07/02/2022 03:07:51 06/29/1907/01/2022 NUA B VAGIN ITIS PLUS (VG+) bvab 2 HIGH - 2 score abnormal Not Available [facility] ([facility]) [address] [facility], [place], [address], 07/02/2022 03:07:51 06/29/1907/01/2022 NUSWA B VAGIN ITIS PLUS (VG+) megasphaera 1 HIGH - 2 score abnormal Calcu late total score by lorenzo g the 3 indiv idual bacte rial vagin osis (BV) marke r score s toget her. Total score is inter prete d as follo ws: Total score 0-1: Indic ates the absen ce of BV. Total score 2: Indet ermin ate for BV. Addit ional clini mohan data shoul d be evalu ated to estab amina a diagn osis. Total score 3-6: Indic ates the prese nce of BV. This test was devel oped and its perfo rmanc e junior cteri stics deter mined by [facility]. It has not been clear ed or appro rocco by the Food and Drug Admin istra tion. Not Available [facility] ([facility]) [address] [facility], [place], [address], 07/02/2022 03:07:51 06/29/19 23 07/01/2022 NUSWA B VAGIN ITIS PLUS (VG+) julian albicans, AVTAR NEGATI VE negati ve Not Available [facility] ([facility]) [address] [facility], [place], [address], 07/02/2022 03:07:51 06/29/19 23 07/01/2022 NUSWA B VAGIN ITIS PLUS (VG+) julian glabrata, AVTAR NEGATI VE negati ve Not Available [facility] ([facility]) [address] [facility], [place], [address], 07/02/2022 03:07:51 06/29/19 23 07/01/2022 NUSWA B VAGIN ITIS PLUS (VG+) trich vag by AVTAR POSITI VE negati ve abnormal Not Available [facility] ([facility]) [address] [facility], [place], [address], 07/02/2022 03:07:51 06/29/19 23 07/01/2022 NUA B VAGIN ITIS PLUS (VG+) chlamydia trachomatis, AVTAR NEGATI VE negati ve Not Available [facility] ([facility]) [address] [place], [address], 07/02/2022 03:07:51 06/29/19 23 07/01/2022 NUSWA B VAGIN ITIS PLUS (VG+) neisseria gonorrhoeae, AVTAR NEGATI VE negati ve Not Available [facility] ([facility]) [address] [place], [address], 07/02/2022 03:07:51 06/29/19 23 06/29/2022 HBSAG SCREE N HBsAg screen NEGATI VE negati ve Not Available [facility] ([facility]) [address] [place], [address], 07/02/2022 03:07:52 06/29/19 23 06/30/2022 URINE CULTU RE, ROUTI NE urine culture, routine FINAL REPORT Not Available [facility] ([facility]) [address] [facility], [place], [address], 07/02/2022 03:07:52 06/29/19 23 06/30/2022 URINE CULTU RE, ROUTI NE result 1 COMMEN T Mixed uroge nital brigette 25,00 0-50, 000 colon y formi ng units per mL Not Available [facility] ([facility]) [address] [facility], [place], [address], 07/02/2022 03:07:52 06/29/19 23 07/01/2022 T PALLI DUM SCREE AJ CASCA DE T pallidum antibodies NON REACTI VE nonrea ctive Not Available [facility] ([facility]) [address] [facility], [place], [address], 07/02/2022 03:07:53 06/29/19 23 06/29/2022 HIV AB/P2 4 AG WITH REFLE X HIV Ab/P24 Ag screen NON REACTI VE nonrea ctive HIV Negat sjai HIV-1 /HIV- 2 antib odies and HIV-1 p24 antig en were NOT detec ronnie. There is no labor atory evide nce of HIV infec tion. Not Available [facility] ([facility]) [address] [facility], [place], [address], 07/02/2022 03:07:53 06/29/19 23 07/01/2022 IGP,A PTIMA HPV,A GE GDLN age gdln acog testing 30-65 Not Available [facility] ([facility]) [address] [place], [address], 07/04/2022 14:14:11 06/29/19 23 07/02/2022 IGP, APTIM A HPV, RFX 16/18 ,45 HPV aptima NEGATI VE negati ve This nucle ic acid ampli ficat ion test detec ts fourt een high- risk HPV types (16,1 8,31, 33,35 ,39,4 5,51, 52,56 ,58,5 9,66, 68) witho ut diffe renti ation . Not Available [facility] ([facility]) [address] [place], [address], 07/04/2022 14:14:12 06/29/19 23 07/04/2022 IGP, APTIM A HPV, RFX 16/18 ,45 diagnosis: COMMJULI T NEGAT SAJI FOR INTRA EPITH ELIAL LESIO N OR [place] . TRICH OMONA S VAGIN RAFFY IS PRESE NT. Not Available [facility] ([facility]) [address] [facility], [place], [address], 07/04/2022 14:14:12 06/29/1907/04/2022 IGP, APTIM A HPV, RFX 16/18 ,45 specimen adequacy: WAGNER T Satis facto ry for evalu ation . Endoc ervic al and/o r squam ous metap lasti c cells (endo cervi mohan compo nent) are prese nt. Not Available [facility] ([facility]) [address] [facility], [place], [address], 07/04/2022 14:14:12 06/29/1907/04/2022 IGP, APTIM A HPV, RFX 16/18 ,45 clinician provided ICD10: WAGNER T Z11.3 N89.8 N39.0 Z01.4 19 Not Available [facility] ([facility]) [address] [place], [address], 07/04/2022 14:14:12 06/29/19 23 07/04/2022 IGP, APTIM A HPV, RFX 16/18 ,45 performed by: WAGNER T Jaclyn chris, Cytot dk carter (ASCP ) Not Available [facility] ([facility]) [address] [facility], [place], [address], 07/04/2022 14:14:12 06/29/19 23 07/04/2022 IGP, APTIM A HPV, RFX 16/18 ,45 . . Not Available [facility] ([facility]) [address] [facility], [place], [address], 07/04/2022 14:14:12 06/29/19 23 07/04/2022 IGP, APTIM A HPV, RFX 16/18 ,45 note: COMMEN T The Pap smear is a scree aj test desig kathy to aid in the detec tion of jade ligna nt and malig nant condi tions of the uteri ne cervi x. It is not a diagn ostic proce dure and shoul d not be used as the sole means of detec ting cervi mohan cance r. Both false -posi tive and false -nega tive repor ts do occur . Not Available [facility] ([facility]) [address] [facility], [place], [address], 07/04/2022 14:14:12 06/29/19 23 07/04/2022 IGP, APTIM A HPV, RFX 16/18 ,45 test methodology: COMMEN T This liqui d based ThinP rep(R ) pap test was scree kathy with the use of an image guide d systcathryn m. Not Available [facility] ([facility]) [address] [facility], [place], [address], 07/04/2022 14:14:12 06/29/19 23 07/04/2022 IGP, APTIM A HPV, RFX 16/18 ,45 HPV genotype reflex COMMEN T Crite phuong not met, HPV Genot ype not perfo rmed. Not Available [facility] ([facility]) [address] [facility], [place], [address], 07/04/2022 14:14:12 06/29/19 23 06/29/2022 INTER PRETA TION: interpretati on: COMMEN T Not infec ronnie with HCV unles s early or acute infec tion is suspe cted (whic h may be delay ed in an immun ocomp romis ed indiv idual ), or other evide nce exist s to indic ate HCV infec tion. Not Available [facility] ([facility]) [address], [place], [address], 07/02/2022 03:07:50 06/29/19 23 06/28/2022 urina lysis , dipst ick Leukocytes Small Not Available In-Offi ce Order Internal Use Only DO Not Attach Compendium DO Not Attach Compendium, Do Not Delete/merge, 06/28/2022 09:13:11 06/29/19 23 06/28/2022 urina lysis , dipst ick Nitrite negati ve Not Available In-Office Order Internal Use Only DO Not Attach Compendium DO Not Attach Compendium, Do Not Delete/merge, 06/28/2022 09:13:11 06/29/19 23 06/28/2022 urina lysis , dipst ick Urobilinogen 1 Not Available In-Of fice Order Internal Use Only DO Not Attach Compendium DO Not Attach Compendium, Do Not Delete/merge, 06/28/2022 09:13:11 06/29/19 23 06/28/2022 urina lysis , dipst ick Protein 100 Not Available In-Office Order Internal Use Only DO Not Attach Compendium DO Not Attach Compendium, Do Not Delete/merge, 06/28/2022 09:13:11 06/29/19 23 06/28/2022 urina lysis , dipst ick pH 7.0 Not Available In-Office Order Internal Use Only DO Not Attach Compendium DO Not Attach Compendium, Do Not Delete/merge, 06/28/2022 09:13:11 06/29/19 23 06/28/2022 urina lysis , dipst ick Blood Large Not Available In-Office Order Internal Use Only DO Not Attach Compendium DO Not Attach Compendium, Do Not Delete/merge, [id number] 06/28/2022 09:13:11 06/29/19 23 06/28/2022 urina lysis , dipst ick Specific Hinckley 1.020 Not Available In-Off ice Order Internal Use Only DO Not Attach Compendium DO Not Attach Compendium, Do Not Delete/merge, 06/28/2022 09:13:11 06/29/19 23 06/28/2022 urina lysis , dipst ick Ketone Negati ve Not Available In-Office Order Internal Use Only DO Not Attach Compendium DO Not Attach Compendium, Do Not Delete/merge, 06/28/2022 09:13:11 06/29/19 23 06/28/2022 urina lysis , dipst ick Bilirubin Negati ve Not Available In-Office Order Internal Use Only DO Not Attach Compendium DO Not Attach Compendium, Do Not Delete/merge, 06/28/2022 09:13:11 06/29/19 23 06/28/2022 urina lysis , dipst ick Glucose Negati ve Not Available In-Office Order Internal Use Only DO Not Attach Compendium DO Not Attach Compendium, Do Not Delete/merge, 06/28/2022 09:13:11 09/13/19 23 09/13/2022 HCV ANTIB MADHAV RFX TO QUANT PCR HCV Ab Non Reacti ve nonrea ctive Not Available [facility] ([facility]) [address] [place], [address], 09/14/2022 03:07:53 09/13/1909/13/2022 CT, NG, TRICH VAG BY AVTAR chlamydia by AVTAR Negati ve negati ve Not Available [facility] ([facility]) [address] [place], [address], 09/14/2022 03:07:54 09/13/19 23 09/13/2022 CT, NG, TRICH VAG BY AVTAR gonococcus by AVTAR Negati ve negati ve Not Available [facility] ([facility]) [address] [place], [address], 09/14/2022 03:07:54 09/13/19 23 09/13/2022 CT, NG, TRICH VAG BY AVTAR trich vag by AVTAR Negati ve negati ve Not Available [facility] ([facility]) [address] [facility], [place], [address], 09/14/2022 03:07:54 09/13/19 23 09/13/2022 HBSAG SCREE N HBsAg screen Negati ve negati ve Not Available [facility] ([facility]) [address] [facility], [place], [address], 09/14/2022 03:07:55 09/13/19 23 09/13/2022 T PALLI DUM SCREE AJ CASCA DE T pallidum antibodies Non Reacti ve nonrea ctive Not Available [facility] ([facility]) [address] [facility], [place], [address], 09/14/2022 03:07:55 09/13/19 23 09/13/2022 HIV AB/P2 4 AG WITH REFLE X HIV Ab/P24 Ag screen Non Reacti ve nonrea ctive HIV Negat saji HIV-1 /HIV- 2 antib odies and HIV-1 p24 antig en were NOT detec ronnie. There is no labor atory evide nce of HIV infec tion. Not Available [facility] ([facility]) [address] [facility], [place], [address], 09/14/2022 03:07:56 09/13/1909/12/2022 urina lysis , dipst ick Leukocytes Negati ve Not Available In-Office Order Internal Use Only DO Not Attach Compendium DO Not Attach Compendium, Do Not Delete/merge, [id number] 09/12/2022 15:47:08 09/13/19 23 09/12/2022 urina lysis , dipst ick Nitrite negati ve Not Available In-Office Order Internal Use Only DO Not Attach Compendium DO Not Attach Compendium, Do Not Delete/merge, [id number] 09/12/2022 15:47:08 09/13/19 23 09/12/2022 urina lysis , dipst ick Urobilinogen 1 Not Available In-Of fice Order Internal Use Only DO Not Attach Compendium DO Not Attach Compendium, Do Not Delete/merge, 09/12/2022 15:47:08 09/13/19 23 09/12/2022 urina lysis , dipst ick Protein Negati ve Not Available In-Office Order Internal Use Only DO Not Attach Compendium DO Not Attach Compendium, Do Not Delete/merge, 09/12/2022 15:47:08 09/13/19 23 09/12/2022 urina lysis , dipst ick pH 6.5 Not Available In-Office Order Internal Use Only DO Not Attach Compendium DO Not Attach Compendium, Do Not Delete/merge, 09/12/2022 15:47:08 09/13/19 23 09/12/2022 urina lysis , dipst ick Blood Negati ve Not Available In-Office Order Internal Use Only DO Not Attach Compendium DO Not Attach Compendium, Do Not Delete/merge, 09/12/2022 15:47:08 09/13/19 23 09/12/2022 urina lysis , dipst ick Specific Hinckley 1.030 Not Available In-Off ice Order Internal Use Only DO Not Attach Compendium DO Not Attach Compendium, Do Not Delete/merge, 09/12/2022 15:47:08 09/13/19 23 09/12/2022 urina lysis , dipst ick Ketone Negati ve Not Available In-Office Order Internal Use Only DO Not Attach Compendium DO Not Attach Compendium, Do Not Delete/merge, 09/12/2022 15:47:08 09/13/19 23 09/12/2022 urina lysis , dipst ick Bilirubin Small Not Available In-Offic e Order Internal Use Only DO Not Attach Compendium DO Not Attach Compendium, Do Not Delete/merge, 09/12/2022 15:47:08 09/13/19 23 09/12/2022 urina lysis , dipst ick Glucose Negati ve Not Available In-Office Order Internal Use Only DO Not Attach Compendium DO Not Attach Compendium, Do Not Delete/merge, [id number] 09/12/2022 15:47:08 09/13/1909/13/2022 INTER PRETA TION: interpretati on: Commen t Not infec ronnie with HCV unles s early or acute infec tion is suspe cted (whic h may be delay ed in an immun ocomp romis ed indiv idual ), or other evide nce exist s to indic ate HCV infec tion. Not Available [facility] ([facility]) [address] [facility], [place], [address], 09/14/2022 03:07:53 03/06/2003/06/2023 CBC WITH DIFFE RENTI AL/PL ATELE T WBC 10.3 x10e3 /uL 3.4-10 .8 Not Available [facility] Department [address] [place], [address], 03/07/2023 06:18:59 03/06/20 23 03/06/2023 CBC WITH DIFFE RENTI AL/PL ATELE T RBC 4.38 x10e6 /uL 3.77-5 .28 Not Available [facility] Department [address] [place], [address], 03/07/2023 06:18:59 03/06/20 23 03/06/2023 CBC WITH DIFFE RENTI AL/PL ATELE T hemoglobin 12.4 g/dL 11.1-1 5.9 Not Available [facility] Department [address] [place], [address], 03/07/2023 06:18:59 03/06/20 23 03/06/2023 CBC WITH DIFFE RENTI AL/PL ATELE T hematocrit 39.8 % 34.0-4 6.6 Not Available [facility] Department [address] [place], [address], 03/07/2023 06:18:59 03/06/20 23 03/06/2023 CBC WITH DIFFE RENTI AL/PL ATELE T MCV 91 fL 79-97 Not Available [facility] Department [address] [place], [address], 03/07/2023 06:18:59 03/06/20 23 03/06/2023 CBC WITH DIFFE RENTI AL/PL ATELE T MCH 28.3 pg 26.6-3 3.0 Not Available [facility] [address] [place], [address], 03/07/2023 06:18:59 03/06/20 23 03/06/2023 CBC WITH DIFFE RENTI AL/PL ATELE T MCHC 31.2 g/dL 31.5-3 5.7 below low normal Not Available [facility] Department [address] [place], [address], 03/07/2023 06:18:59 03/06/20 23 03/06/2023 CBC WITH DIFFE RENTI AL/PL ATELE T RDW 12.8 % 11.5-1 4.5 Not Available [facility] [address] [place], [address], 03/07/2023 06:18:59 03/06/20 23 03/06/2023 CBC WITH DIFFE RENTI AL/PL ATELE T platelets 286 x10e3 /uL 150-45 0 Not Available [facility] Department [address] [place], [address], 03/07/2023 06:18:59 03/06/20 23 03/06/2023 CBC WITH DIFFE RENTI AL/PL ATELE T neutrophils 51 % notest b. Not Available [facility] [address] [place], [address], 03/07/2023 06:18:59 03/06/20 23 03/06/2023 CBC WITH DIFFE RENTI AL/PL ATELE T lymphs 39 % notest b. Not Available [facility] [address] [place], [address], 03/07/2023 06:18:59 03/06/20 23 03/06/2023 CBC WITH DIFFE RENTI AL/PL ATELE T monocytes 5 % notest b. Not Available [facility] [address] [place], [address], 03/07/2023 06:18:59 03/06/20 23 03/06/2023 CBC WITH DIFFE RENTI AL/PL ATELE T eos 4 % notest b. Not Available [facility] [address] [place], [address], 03/07/2023 06:18:59 03/06/20 23 03/06/2023 CBC WITH DIFFE RENTI AL/PL ATELE T basos 1 % notest b. Not Available [facility] Department [address] [place] [address], [address], 03/07/2023 06:18:59 03/06/20 23 03/06/2023 CBC WITH DIFFE RENTI AL/PL ATELE T neutrophils (absolute) 5.3 x10e3 /uL 1.4-7. 0 Not Available [facility] [address] [place], [address], 03/07/2023 06:18:59 03/06/20 23 03/06/2023 CBC WITH DIFFE RENTI AL/PL ATELE T lymphs (absolute) 4.0 x10e3 /uL 0.7-3. 1 above high normal Not Available [facility] [address] [place], [address], 03/07/2023 06:18:59 03/06/20 23 03/06/2023 CBC WITH DIFFE RENTI AL/PL ATELE T monocytes(ab solute) 0.6 x10e3 /uL 0.1-0. 9 Not Available [facility] Department [address] [place], [address], 03/07/2023 06:18:59 03/06/20 23 03/06/2023 CBC WITH DIFFE RENTI AL/PL ATELE T eos (absolute) 0.4 x10e3 /uL 0.0-0. 4 Not Available [facility] Department [address] [place], [address], 03/07/2023 06:18:59 03/06/20 23 03/06/2023 CBC WITH DIFFE RENTI AL/PL ATELE T baso (absolute) 0.1 x10e3 /uL 0.0-0. 2 Not Available [facility] Department [address] [place], [address], 03/07/2023 06:18:59 03/06/20 23 03/06/2023 CBC WITH DIFFE RENTI AL/PL ATELE T immature granulocytes 0.3 % notest b. Not Available [facility] Department [address] [place], [address], 03/07/2023 06:18:59 03/06/20 23 03/06/2023 CBC WITH DIFFE RENTI AL/PL ATELE T immature grans (abs) 0.0 x10e3 /uL 0.0-0. 1 Not Available [facility] [address] [place], [address], 03/07/2023 06:18:59 03/06/20 23 03/06/2023 CBC WITH DIFFE RENTI AL/PL ATELE T NRBC 0 % 0-0 Not Available [facility] [address] [place], [address], 03/07/2023 06:18:59 03/06/20 23 03/09/2023 NUSWA B VAGIN ITIS PLUS (VG+) trich vag by AVTAR Negati ve negati ve Not Available [facility] ([facility]) [address] [facility], [place], [address], 03/10/2023 11:22:20 03/06/20 23 03/09/2023 NUSWA B VAGIN ITIS PLUS (VG+) chlamydia trachomatis, AVTAR Negati ve negati ve Not Available [facility] ([facility]) [address] [facility], [place], [address], 03/10/2023 11:22:20 03/06/20 23 03/09/2023 NUSWA B VAGIN ITIS PLUS (VG+) neisseria gonorrhoeae, AVTAR Negati ve negati ve Not Available [facility] ([facility]) [address] [facility], [place], [address], 03/10/2023 11:22:20 03/06/20 23 03/10/2023 NUSWA B VAGIN ITIS PLUS (VG+) atopobium vaginae Modera te - 1 score Not Available [facility] ([facility]) [address] [facility], [place], [address], 03/10/2023 11:22:20 03/06/20 23 03/10/2023 NUSWA B VAGIN ITIS PLUS (VG+) bvab 2 High - 2 score abnormal Not Available [facility] ([facility]) [address] [facility], [place], [address], 03/10/2023 11:22:20 03/06/20 23 03/10/2023 NUSWA B VAGIN ITIS PLUS (VG+) megasphaera 1 High - 2 score abnormal Calcu late total score by addin g the 3 indiv idual bacte rial vagin osis (BV) marke r score s toget her. Total score is inter prete d as follo ws: Total score 0-1: Indic ates the absen ce of BV. Total score 2: Indet ermin ate for BV. Addit ional clini mohan data shoul d be evalu ated to estab amina a diagn osis. Total score 3-6: Indic ates the prese nce of BV. This test was devel oped and its perfo rmanc e junior cteri stics deter mined by [facility]. It has not been clear ed or appro rocco by the Food and Drug Admin istra tion. Not Available [facility] ([facility]) [address] [place], [address], 03/10/2023 11:22:20 03/06/20 23 03/10/2023 NUSWA B VAGIN ITIS PLUS (VG+) julian albicans, AVTAR Negati ve negati ve Not Available [facility] ([facility]) [address] [place], [address], 03/10/2023 11:22:20 03/06/20 23 03/10/2023 NUSWA B VAGIN ITIS PLUS (VG+) julian glabrata, AVTAR Negati ve negati ve Not Available [facility] ([facility]) [address] [place], [address], 03/10/2023 11:22:20 03/06/20 23 03/07/2023 TSH+F REE T4 TSH 3.730 uIU/m L 0.450- 4.500 Not Available [facility] ([facility]) [address] [place], [address], 03/10/2023 11:22:21 03/06/20 23 03/07/2023 TSH+F REE T4 T4,free(dire ct) 0.92 NG/dL 0.82-1 .77 Not Available [facility] ([facility]) [address] [place], [address], 03/10/2023 11:22:21 03/06/20 23 03/07/2023 IRON AND TIBC iron bind.cap.(TI BC) 365 ug/dL 250-45 0 Not Available [facility] ([facility]) [address] [place], [address], 03/10/2023 11:22:21 03/06/20 23 03/07/2023 IRON AND TIBC UIBC 330 ug/dL 131-42 5 Not Available [facility] ([facility]) [address] [facility], [place], [address], 03/10/2023 11:22:21 03/06/20 23 03/07/2023 IRON AND TIBC iron 35 ug/dL 27-159 Not Available [facility] ([facility]) [address] [facility], [place], [address], 03/10/2023 11:22:21 03/06/20 23 03/07/2023 IRON AND TIBC iron saturation 10 % 15-55 below low normal Not Available [facility] ([facility]) [address] [facility], [place], [address], 03/10/2023 11:22:21 03/06/20 23 03/07/2023 RELL TIN ferritin 29 NG/mL 15-150 Not Available [facility] ([facility]) [address] [facility], [place], [address], 03/10/2023 11:22:22 Result Notes None recorded. Problems Name Problem SNOMED Code Status Onset Date Resolution Date Notes Provider Name and Address Organization Details Recorded Time Testosteron e level above reference range 746878855 Active 2017 Rhys verde [facility] - [facility] 8 10:10:54 Hypothyroid ism 54928497 Active 2017 Rhys verde [facility] - [facility] 8 10:11:02 Deliveries by 449214407 Active 2017 Rhys verde [place] - [facility] 8 10:11:42 Female sterilizati on Completed 201702/16/2018 Rhys verde JOE - [facility] 8 17:03:20 History of female sterilizati on 064195717 Active 2017 Rhys verde JO[facility] - [facility] 8 17:03:08 Obesity 962795199 Active 2018 Rhys verde [place] - [facility] 9 16:18:17 Abscess of vulva 11269622 Active 2018 Rhys verde, [facility] 9 16:18:25 Problem Notes None recorded. Procedures Surgical History Date Name Laterality Status Provider Name and Address Organization Details Recorded Time 06/29/19 23 Date of Last Pap Smear completed Lisseth Hanson MA [facility] 06/28/2022 09:20:11 11/15/19 15 Tubal Ligation completed Nimisha Cuello MA [facility] 12/22/2017 16:47:10 11/15/19 15 Caesarean Section completed Nimisha Cuello MA [facility] 12/22/2017 16:47:03 08/13/19 12 Caesarean Section completed Nimisha Cuello MA [facility] 12/22/2017 16:46:44 06/15/19 09 Caesarean Section completed Nimisha Cuello MA [facility] 12/22/2017 16:46:26 01/22/20 02 Caesarean Section completed Nimisha Cuello MA [facility] 12/22/2017 16:46:00 Cholecystectomy completed Isamar garcia MA [facility] 12/22/2017 16:10:43 Imaging Results None recorded. Procedure Notes None recorded. Medical Equipment None Reported. Allergies No known drug allergies Medications Name Sig Start Date Stop Date Status Note LastModified by Organization Details LastModified Time multivitami n tablet TAKE 1 TABLET BY MOUTH EVERY DAY 12/26 completed Not Available Not Available Not Available cyclobenzap rine 10 mg tablet TAKE 1 TABLET BY MOUTH 3 TIMES A DAY NEEDED FOR MUSCLE SPASM 03/06 completed Not Available Not Available Not Available prednisone 10 mg tablet TK 5 TS PO D WF OR MILK 12/26 completed Not Available Not Available Not Available azithromyci n 250 mg tablet Take 1 tablet every day by oral route for 5 days. 12/26 completed Not Available Not Available Not Available ibuprofen 800 mg tablet TAKE 1 TABLET BY MOUTH 3 TIMES A DAY NEEDED FOR PAIN 03/06 completed Not Available Not Available Not Available fluconazole 150 mg tablet TAKE ONE TABLET BY MOUTH EVERY 3 DAYS UNTIL GONE 12/26 completed Not Available Not Available Not Available hydrocodone 5 mg-acetamin ophen 325 mg tablet 12/22 completed Not Available Not Available Not Available phenazopyri dine 200 mg tablet 12/26 completed Not Available Not Available Not Available metronidazo le 0.75 % (37.5 mg/5 gram) vaginal gel INSERT 1 APPLICATO RFUL VAGINALLY EVERY DAY FOR 5 DAYS active Not Available Not Available No t Available prednisone 20 mg tablet 09/01 completed Not Available Not Available Not Available spironolact one 100 mg tablet Take 1 tablet twice a day by oral route. 12/26 completed Not Available Not Available Not Available metronidazo le 500 mg tablet TAKE 1 TABLET BY MOUTH TWICE A DAY FOR 7 DAYS 03/06 completed Not Available Not Available Not Available phentermine 37.5 mg tablet TAKE 1 TABLET BY MOUTH EVERY DAY 06/28 completed Not Available Not Available Not Available ciprofloxac in 500 mg tablet 09/01 completed Not Available Not Available Not Available pantoprazol e 20 mg tablet,aliza yed release 12/26 completed Not Available Not Available Not Available levothyroxi ne 75 mcg tablet Take 1 tablet every day by oral route. 09/01 completed Not Available Not Available Not Available amoxicillin 875 mg tablet TAKE 1 TABLET BY MOUTH EVERY 12 HOURS FOR 10 DAYS 03/06 completed Not Available Not Available Not Available alprazolam 0.25 mg tablet TAKE 1 TABLET BY MOUTH EVERY DAY NEEDED 03/06 completed Not Available Not Available Not Available cyanocobala min (vit B-12) 500 mcg tablet TAKE 1 TABLET BY MOUTH EVERY DAY 03/06 completed Not Available Not Available Not Available meclizine 25 mg tablet TAKE 1 TABLET BY MOUTH EVERY 6 TO 8 HOURS NEEDED FOR DIZZINESS 03/06 completed Not Available Not Available Not Available benzonatate 100 mg capsule 09/01 completed Not Available Not Available Not Available cephalexin 500 mg capsule TAKE 1 CAPSULE BY MOUTH EVERY 12 HOURS FOR 7 DAYS 03/06 completed Not Available Not Available Not Available levothyroxi ne 125 mcg tablet Take 1 tablet every day by oral route in the morning. 12/26 completed Not Available Not Available Not Available nystatin 100,000 unit/gram topical cream APPLY TO THE AFFECTED AREA(S) BY TOPICAL ROUTE 2 TIMES PER DAY 03/06 completed Not Available Not Available Not Available prednisone 50 mg tablet 09/01 completed Not Available Not Available Not Available ceftriaxone 500 mg solution for injection Take 500 mg by injection route. 12/26 completed Not Available Not Available Not Available mupirocin 2 % topical ointment APPLY A SMALL AMOUNT TO THE AFFECTED AREA BY TOPICAL ROUTE 3 TIMES PER DAY 03/06 completed Not Available Not Available Not Available norethindro ne acetate 5 mg tablet Take 1 tablet every day by oral route. 12/26 completed Not Available Not Available Not Available ergocalcife rol (vitamin D2) 1,250 mcg (50,000 unit) capsule TAKE 1 CAPSULE BY MOUTH ONE TIME PER WEEK 03/06 completed Not Available Not Available Not Available ibuprofen 600 mg tablet TK 1 T PO Q 6 HOURS PRN FOR PAIN. TAKE WITH FOOD 12/26 completed Not Available Not Available Not Available methylpredn isolone 4 mg tablets in a dose pack TAKE 6 TABLETS ON DAY 1 DIRECTED ON PACKAGE AND DECREASE BY 1 TAB EACH DAY FOR A TOTAL OF 6 DAYS 03/06 completed Not Available Not Available Not Available albuterol sulfate HFA 90 mcg/actuati on aerosol inhaler 12/26 completed Not Available Not Available Not Available fluticasone propionate 50 mcg/actuati on nasal spray,suspe nsion 12/26 completed Not Available Not Available Not Available metformin ER 500 mg tablet,exte nded release 24 hr TAKE 1 TABLET BY MOUTH TWICE A DAY active Not Available Not Available No t Available loratadine 10 mg tablet TAKE 1 TABLET BY MOUTH EVERY DAY 03/06 completed Not Available Not Available Not Available amoxicillin 875 mg-potassiu m clavulanate 125 mg tablet TAKE 1 TABLET BY MOUTH EVERY 12 HOURS FOR 10 DAYS 06/28 completed Not Available Not Available Not Available escitalopra m 10 mg tablet TAKE 1 TABLET BY MOUTH EVERY DAY 03/06 completed Not Available Not Available Not Available cyclobenzap rine 5 mg tablet 12/22 completed Not Available Not Available Not Available cholestyram ine (with sugar) 4 gram powder for susp in a packet 12/22 completed Not Available Not Available Not Available bupropion HCl XL 150 mg 24 hr tablet, extended release TAKE 1 TABLET BY MOUTH EVERY DAY 03/06 completed Not Available Not Available Not Available nitrofurant oin monohydrate /macrocryst als 100 mg capsule TAKE 1 CAPSULE BY MOUTH EVERY 12 HOURS FOR 7 DAYS active Not Available Not Available No t Available Calcium with Vitamin D 600 mg-10 mcg (400 unit) tablet Take 1 tablet twice a day by oral route. 09/01 completed Not Available Not Available Not Available Victoza 3-Charlie 0.6 mg/0.1 mL (18 mg/3 mL) subcutaneou s pen injector INJECT 0.6 MG SUBCUTANE OUS DAILY X1WEEK, THEN INJECT 1.2 MG DAILY THEREAFTE R 03/06 completed Not Available Not Available Not Available Trulicity 0.75 mg/0.5 mL subcutaneou s pen injector INJECT THE CONTENTS OF 1 PEN UNDER THE SKIN ONCE WEEKLY active Not Available Not Available No t Available Aurovela Fe 1-20 (28) 1 mg-20 mcg (21)/75 mg (7) tablet TAKE 1 TABLET BY MOUTH EVERY DAY active Not Available Not Available No t Available BD Juju 2nd Gen Pen Needle 32 gauge x 5/32 USE DIRECTED TO INJECT VICTOZA 03/06 completed Not Available Not Available Not Available Vitals Date Recorded Body height Body mass index (BMI) Body weight Provider Name and Address Organization Details Last Updated DateTime 05/29/2020 157.48 cm 49.7 kg/m2 014927.12 g Joanne Ndiaye [place] - [facility] 05/29/2020 10:15:36 Date Recorded Body height Body mass index (BMI) Body weight Provider Name and Address Organization Details Last Updated DateTime 12/26/2020 157.48 cm 45.4 kg/m2 388539.91 g Faiza Brito [place] [facility] 12/26/2020 15:30:26 Date Recorded Body height Body mass index (BMI) Body weight Systolic blood pressure Diastolic blood pressure Provider Name and Address Organization Details Last Updated DateTime 06/28/2022 157.48 cm 49.7 kg/m2 357873.1 2 g 130 mm[Hg] 78 mm[Hg] Lisseth Hanson [place] [facility] 09:25:16 Date Recorded Body height Body mass index (BMI) Body weight Systolic blood pressure Diastolic blood pressure Provider Name and Address Organization Details Last Updated DateTime 09/12/2022 157.48 cm 48.5 kg/m2 729274.9 8 g 130 mm[Hg] 82 mm[Hg] Faiza Brito MA [facility] 3 15:39:27 Date Recorded Body height Body mass index (BMI) Body weight Systolic blood pressure Diastolic blood pressure Provider Name and Address Organization Details Last Updated DateTime 03/06/2023 157.48 cm 49.2 kg/m2 464098.3 5 g 108 mm[Hg] 84 mm[Hg] Faiza Brito MA [facility] 3 14:02:48 Social History Question Answer Notes LastModified by Organizat ion Details LastModified Time Tobacco Smoking Status Current Every Day Smoker Isamar Linares MA [facility], [facility] 12/22/2017 16:08:22 Do You Have An Advance Directive? No Information not available 12/26/2020 What Is Your Level Of Alcohol Consumption? Moderate Information not available 12/22/2017 Is Blood Transfusion Acceptable In An Emergency? Yes Information not available 12/22/2017 What Is Your Level Of Caffeine Consumption? Heavy Information not available 12/22/2017 How Much Tobacco Do You Chew? None Information not available 12/22/2017 Are You Currently Employed? Yes Information not available 12/22/2017 What Type Of Diet Are You Following? REGULAR Information not available 12/22/2017 Which Illicit Or Recreational Drugs Have You Used? Marijauana Information not available 12/22/2017 Do You Or Have You Ever Used E-cigarettes Or Vape? 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 With Others Information not available 12/22/2017 What Was The Date Of Your Most Recent Tobacco Screening? 03/06/2023 Information not available 03/06/2023 How Many Children Do You Have? 4 Information not available 12/22/2017 What Is Your Current Pack Years? 10-19packyears Information not available 12/26/2020 Performs Monthly Self-breast Exam? Yes Information no t available 12/22/2017 What Is Your Relationship Status? Information not available 12/22/2017 Seat Belts Used Routinely Yes Information not available 12/22/2017 Are You Sexually Active? Yes Information not available 12/22/2017 Do You Have Smoke And Carbon Monoxide Detectors In Your Home? Yes Information not available 12/26/2020 At What Age Did You Start Smoking Tobacco? 22 Information not available 12/22/2017 Are You Passively Exposed To Smoke? Yes Information no t available 12/26/2020 How Much Tobacco Do You Smoke? 0.25 PPD Information not available 06/28/2022 General Stress Level Medium Information not available 12/22/2017 Do You Use Any Illicit Or Recreational Drugs? Yes Information not available 12/26/2020 Do You Use Sunscreen Routinely? No Information not available 12/22/2017 Has Tobacco Cessation Counseling Been Provided? Yes Information not available 12/26/2020 On What Date Was Tobacco Cessation Counseling Provided? 03/06/2023 Information not available 03/06/2023 How Many Years Have You Smoked Tobacco? 12 Information not available 12/26/2020 Do You Or Have You Ever Used Any Other Forms Of Tobacco Or Nicotine? Yes Information not available 06/28/2022 Sex: Unknown Functional Status Question Answer Note LastModified by Organization D etails LastModified Time What is your exercise level? None Information not available 12/22/2017 Mental Status None recorded. Family History Relationship Description Onset Age of this Age Resolved Age Notes LastModified by Organization Details LastModified Time Daughter Asthma Not available 12/22/2017 16:06:57 Son Attention deficit hyperactivit y disorder Not available 12/22 16:07:06 Maternal Grandmother Cerebrovascu lar accident Not available 16:07:15 Maternal Grandmother Diabetes mellitus Not available 2017 16:07:36 Maternal Grandfather Diabetes mellitus Not available 2017 16:07:30 Paternal Grandfather Diabetes mellitus Not available 2017 16:07:39 Paternal Grandmother Diabetes mellitus Not available 2017 16:07:43 Paternal Grandmother Malignant tumor of breast Not available 2017 16:08:05 Medical History Condition Response Other N High Blood Pressure N Breast Cancer N Thyroid Problems N Kidney or Bladder Problems N GI Problems N Depression N Blood Clots N Lung Disease N Acne N Breast Problem N Eating Disorder N Anemia N Anesthesia Complications N Headaches/Migraines N Anxiety Disorder N Diabetes N Ovarian Cancer N Muscle, Joint, or Bone Problems N Blood Transfusions N Seizures/Epilepsy N Polyps N Infertility N Acid Reflux (GERD) N Cancer N Abuse/Domestic Violence N Asthma N Endometriosis N High Cholesterol N Hepatitis N Liver Disease N Heart Disease N Pre-Eclampsia N Osteoporosis N Gynecological History Statement/Question Response Abnormal Pap N Flow Heavy Date of LMP 03/03/2023 On BCP's at Conception? N STIs/STDs Y HPV Vaccine N Duration of Flow (days) 6 Age at Menarche 12 Current Control Method Tubal Ligat ion Age at First Child 16 Frequency of Cycle (Q days) 30 Sexually Active? Y Menses Monthly Y Date of Last Pap Smear 06/28/2022 Sexual Problems? Y LMP Definite Obstetrics History GPAL:G 7 P 3 1 3 4 Type Value Multiple Births 0 Full Term 3 Induced 0 Spontaneous 3 Premature 1 Living 4 Ectopics 0 Total 7 Immunizations Vaccine Type Date Status Note Provider Nam e and Address Organization Details Recorded Time COVID-19, mRNA, LNP-S, PF, 30 mcg/0.3 mL dose 10/18/2020 completed YARELI [place], [place] - [facility] 06/28/2022 09:21:35 COVID-19, mRNA, LNP-S, PF, 30 mcg/0.3 mL dose 11/08/2020 completed YAREL[place] [facility] 06/28/2022 09:21:35 Past Encounters Encounter ID Performer Location Encounter Start Date Encounter Closed Date Diagnosis/Indication Diagnosis SNOMED-CT Code Diagnosis ICD10 Code Diagnosis Note [id number] Rhys Estes (SIZE CUTTER) [address] [place] [address] [id number] 12/22/2017 15:14:45 12/22/2017 17:34:12 Gynecologic examination 36415259 Z01.411 Exposure t o sexually transmissible disorder 181151147 Z20.2 Polycystic ovaries 88870 008 E28.2 Anemia 903729761 D64.9 Acute urin edgar tract infection 037333688 N39.0 [id number] Amanda Nation Meera (SIZE CUTTER) [address] [place] [address] [id number] 0 02/16/2018 15:56:27 02/17/2018 14:33:48 Cyst of ovary 07551960 N83.209 Abnormal u terine bleeding 4018794127 9100 N93.9 Hypothyroidism 64119284 E03.9 Testostero ne level above reference range 279966555 E28.1 Deliveries by 167778596 O82 History of female sterilization 000542438 Z92.0 Family lev nning surveillance 061255426 Z30.09 History of sterilizat ion [id number] Rhys Estes (SIZE CUTTER) [address] [place] [address] [id number] 09/01/2018 14:33:04 09/01/2018 17:53:40 History of female sterilization 324224096 Z92.0 Deliveries by 560582454 O82 Abscess of vulva 7509924 1 N76.4 warm soaks to form a head (highly vascular area) Exposure t o sexually transmissible disorder 940450489 Z20.2 Z11.3 Obesity 470971687 E66.9 Family lev nning surveillance 414043613 Z30.09 History of sterilizat ion [id number] Rhys Estes (SIZE CUTTER) [address] [place] [address] [id number] 05/29/2020 08:56:49 06/01/2020 07:18:53 Family planning surveillance 449949471 Z30.09 History of sterilizat ion Vulvitis 98477661 N76.2 Pt dropped off urine sample today 2/22. Waiting for results. Pt will check portal for results. [id number] NINI COLBERT (SIZE CUTTER) [address] [place] [address] [id number] 12/26/2020 15:11:18 12/27/2020 09:20:37 Folliculitis 46054784 L73.9 PE c/w ingrown hair. Advised shaving in direction of hair growth or alternativ e hair removal methods, clean razors, routine exfoliatio n. RTC if symptoms worsen. [id number] NINI COLBERT (SIZE CUTTER) [address] [place] [address] [id number] 0 06/28/2022 09:04:29 07/07/2022 13:49:55 Acute urinary tract infection 144557769 N39.0 Patient reports burning with urination x 1 week, a sensation that she cannot fully empty her bladder, inc in frequency, and possible hematuria. Urine dipstick in office positive for protein, leukocytes , and blood. Urine sent for culture. Began empiric antibiotic therapy. RTC if symptoms do not improve. Gynecologi c examination 22013515 Z01.419 Cervical cancer screening: Last Pap 12/22/2017 NILM/HPV neg, updated today.Luci st cancer screening: Reviewed recommenda tions for initiation at age 40 with annual screening. Discussed SBEContrac eption: tubal ligationDi et/exercis e: Counseled regarding importance of physical activity, healthy diet and appropriat e calcium intake.RTC in 1yr Vaginal odor 102359244 N 89.8 Patient reports she has been experienci ng a vaginal discharge that is associated with a fishy odor. Nuswab performed in office, will notify patient of results and treat accordingl y. Venereal d isease screening 007469394 Z11.3 Patient requests STI screening. Educated on safe sex practices. Pain in pelvis 42978362 R10.2 Patient with history of ovarian cysts, x4, and tubal ligation with an intense, right-side d, intermitte nt pelvic pain that she described as a twisting sensation. Ordered TVUS to further assess.Arturo resendiz follow up with imaging results. Obesity 202343879 E66.9 BMI 49.7. Discussed importance of 150 minutes of exercise per week with a diet heavy in fruits and vegetables . [id number] NINI COLBERT (SIZE CUTTER) [address] [place] [address] [id number] 0 09/12/2022 15:18:55 09/26/2022 11:15:23 Venereal disease screening 450806673 Z11.3 Patient requests STI screening. Educated on safe sex practices. Dysuria 99814773 R30.0 UA wnl, follow up STI results. Advised increased water intake. [id number] MD Meera Mckay (Adult Med) [address] [place] [address] [id number] 03/06/2023 13:51:59 03/12/2023 12:15:09 Obesity 681587693 E66.9 Menorrhagia 255269149 N9 2.0 Vaginitis 03374021 N76.0 Use pads instead of tampons while using a vaginal cream or suppositor y. Tampons can absorb the medicine. Wear loose cotton clothing. Do not wear nylon and other materials that hold body heat and moisture close to the skin. Do not scratch. Relieve itching with a cold pack or a cool bath. Do not wash your vaginal area more than once a day. Use plain water or a mild, unscented soap. Do not douche. Health Concerns Section Related Observation LastModified by Organization Detai ls LastModified Time None Recorded Concern Status LastModified by Organization Details LastModified Time None Recorded Advance Directives Directive N: Payers Encounter Date Sequence Insurance Name Policy Number Policy Lau Covered Member ID Lau Member ID Guarantor Name 05/29/2020 1 [employer] [place] 2020 (MEDICAID REPLACEMENT - HMO) Stephani Topete [id number] Stephani Topete 12/26/2020 1 [employer] [place]PLAC[place] - [place]MO) Stephani Topete [id number] Stephani Topete 06/28/2022 1 [employer] [place]PLAC[place] - [place]MO) Stephani Topete [id number] Stephani Topete 09/12/2022 1 [employer] [place]PLAC[place] - [place]MO) Stephani Topete [id number] Stephani Topete 03/06/2023 1 [employer] [place] - [place]MO) Stephani Topete [id number] Stephani Topete Notes Date Note Type Note Provider Name and Address Organization Details Recorded Time 05/29/2020 text/html Vaginal/Vulvar ProblemReported bypatient.Location:[facility]; vagina Onset/Timing:started: ; last friday05/24/2020 Duration:present for 1-7 days Quality:itching; irritation; milky white discharge, without odor Context:sexually active Associated Symptoms:no vaginal pain; no vulvar swelling/erythema; no vulvar lesions; no pelvic pain; no dyspareunia; no dyruria; no fever; no abdominal pain;vaginal itching;vaginal irritation;vulvar itching/irritation 35y/o AAF with obesity, hypothyroidism and increased testosterone level presents today with irritation and discharge. Rhys verde, [facility] 05/30/2020 07:37:53 12/26/2020 text/html 35yo F presents for evaluation of bump on vulva x 3 days. She first noticed it after shaving. She states she has had an abscess before that required drainage. She believes this has recurred. She notes clear drainage. Denies tenderness, purulent drainage, warmth, erythema, n/v, fevers, abnormal discharge. NINI COLBERT Attn: [address] [place], [address], [facility] 12/27/2020 07:11:20 06/28/2022 text/html Stephani Topete is a 37 year old female with a history of tubal ligation, x4, ovarian cysts, hypothyroidism, and obesity who presents for WWE with UTI symptoms x 1 week, irregular periods, pelvic pain, and vaginal discharge. LMP was 06/18/22, but states she is still spotting. UTI symptoms- She states she has had burning with urination x 1 week, and she has a sensation that she cannot fully empty her bladder. She has experience an increase in frequency. She states this morning when she wiped, she noticed blood but is not sure if that was spotting or hematuria. She back pain, n/v/d/f. irregular periods- She states that her periods occur monthly, sometimes twice monthly, with heavy bleeding and spotting. She denies dizziness or LOC. pelvic pain- She states she has experienced an intense, right-sided, intermittent pelvic pain that she described as a twisting sensation. She denies any triggers for her pain. vaginal discharge- She states she has been experiencing a vaginal discharge that is associated with a fishy odor. She denies itching, dyspareunia. NINI COLBERT Attn: [address] [place], [address], [facility] 07/16/2022 12:12:27 09/12/2022 text/html 37yo presen ting for STI screening. She tested positive for trich June 2022 and her and partner completed full course of Flagyl; however, pt states she recently found out her partner was cheating on her. She would like to be tested for everything. She is having mild intermittent dysuria but is otherwise asymptomatic. Denies discharge, itching, lesions, pelvic pain, abnormal bleeding, fevers, chills, n/v. NINI COLBERT Attn: Accounting[address] [place], [address], [facility] 09/25/2022 14:20:23 03/06/2023 text/html pt started menses on the and she also started with vaginal itching/irritation. Denies any discharge. Denies any urinary issues, no redness, no swelling, no blood. Patient did have sexual intercourse on Friday without use of condom with regular male partner. She denies any new soaps, detergents, or creams. She does shave, usually uses electric but 2 weeks ago used a regular razor. She does not recall any bumps after shaving but 3-4 days later she noticed some. They went away. But that is the only new. Pt does have h/o trich that she had at the beginning of this summer but it was treated and resolved.Pt is also c/o heavy periods. Last night she bled through a ultra. Uses both pads and tampons and goes through about 6-7 per day on those days. She has h/o tubal ligation. Pat Yañez MD Attn: [address] [facility], [place], [address], [facility] 03/11/2023 18:00:55 OBGyn Episode Ob Episode Information Episode Created Date Number of Fetuses Patient Bloodtype Patient rh Status Prepregnancy Weight lbs Domestic Partner Domestic Partner Phone Father Name Bioprocess Development Engineer Status 12/23/19 18 1 CLOSED Fetus Data First Name Last Name Admitted to NICU Weight (g) Sex Living Outcome Pediatric Complications Fetus ID Race Codes Race Delivery Type 3940.35 3704 M Full Term 74284 Repeat Clifton Calculation Initial Clifton Date Initial Exam Date Initial Exam Provider Initial Ultrasound Date Last Menstrual Period Date Ultra Sound Weeks Gestation 0 Eighteen To Twenty Week Clifton Update Ultra Sound Date Fundal Height At Umbil Quickening Date Ultra Sound Latest Weeks Gestation Final Clifton Confirmed By Final Clifton Confirmed Date Final [place] Date Ultra Sound Latest Days Gestation 0 0 Menstrual History Last Menstrual Date Menses Monthly On Bcp Conception Prior Menses Frequency Hcg Plus Date Menarche Onset Age Delivery Information Delivery Date Delivery Type Labor Anesthesia Weeks Gestation Incision Type Labor Labor Length Hrs Delivered By Post Complications Tubal Sterilization Discharge Date Comments 9 [facility] idural 40 false Discharge Information Feeding Method Contraceptive Method Maternal HG B and HCT Levels Ob Episode Information Episode Created Date Number of Fetuses Patient Bloodtype Patient rh Status Prepregnancy Weight lbs Domestic Partner Domestic Partner Phone Father Name Bioprocess Development Engineer Status 12/23/19 18 1 CLOSED Fetus Data First Name Last Name Admitted to NICU Weight (g) Sex Living Outcome Pediatric Complications Fetus ID Race Codes Race Delivery Type 4365.82 3 M Full Term 47447 Repeat Clifton Calculation Initial Clifton Date Initial Exam Date Initial Exam Provider Initial Ultrasound Date Last Menstrual Period Date Ultra Sound Weeks Gestation 0 Eighteen To Twenty Week Clifton Update Ultra Sound Date Fundal Height At Umbil Quickening Date Ultra Sound Latest Weeks Gestation Final Clifton Confirmed By Final Clifton Confirmed Date Final Clifton Date Ultra Sound Latest Days Gestation 0 0 Menstrual History Last Menstrual Date Menses Monthly On Bcp Conception Prior Menses Frequency Hcg Plus Date Menarche Onset Age Delivery Information Delivery Date Delivery Type Labor Anesthesia Weeks Gestation Incision Type Labor Labor Length Hrs Delivered By Post Complications Tubal Sterilization Discharge Date Comments 5 [facility] idural 40 false Discharge Information Feeding Method Contraceptive Method Maternal HG B and HCT Levels Ob Episode Information Episode Created Date Number of Fetuses Patient Bloodtype Patient rh Status Prepregnancy Weight lbs Domestic Partner Domestic Partner Phone Father Name Bioprocess Development Engineer Status 12/23/19 18 1 CLOSED Fetus Data First Name Last Name Admitted to NICU Weight (g) Sex Living Outcome Pediatric Complications Fetus ID Race Codes Race Delivery Type 2948.34 8 F Full Term 57658 Clifton Calculation Initial Clifton Date Initial Exam Date Initial Exam Provider Initial Ultrasound Date Last Menstrual Period Date Ultra Sound Weeks Gestation 0 Eighteen To Twenty Week Clifton Update Ultra Sound Date Fundal Height At Umbil Quickening Date Ultra Sound Latest Weeks Gestation Final Clifton Confirmed By Final Clifton Confirmed Date Final Clifton Date Ultra Sound Latest Days Gestation 0 0 Menstrual History Last Menstrual Date Menses Monthly On Bcp Conception Prior Menses Frequency Hcg Plus Date Menarche Onset Age Delivery Information Delivery Date Delivery Type Labor Anesthesia Weeks Gestation Incision Type Labor Labor Length Hrs Delivered By Post Complications Tubal Sterilization Discharge Date Comments 2 [facility] idural 40 false Discharge Information Feeding Method Contraceptive Method Maternal HG B and HCT Levels Ob Episode Information Episode Created Date Number of Fetuses Patient Bloodtype Patient rh Status Prepregnancy Weight lbs Domestic Partner Domestic Partner Phone Father Name Bioprocess Development Engineer Status 12/23/19 18 1 CLOSED Fetus Data First Name Last Name Admitted to NICU Weight (g) Sex Living Outcome Pediatric Complications Fetus ID Race Codes Race Delivery Type M Demise 10410 Clifton Calculation Initial Clfiton Date Initial Exam Date Initial Exam Provider Initial Ultrasound Date Last Menstrual Period Date Ultra Sound Weeks Gestation 0 Eighteen To Twenty Week Clifton Update Ultra Sound Date Fundal Height At Umbil Quickening Date Ultra Sound Latest Weeks Gestation Final Clifton Confirmed By Final Clifton Confirmed Date Final Clifton Date Ultra Sound Latest Days Gestation 0 0 Menstrual History Last Menstrual Date Menses Monthly On Bcp Conception Prior Menses Frequency Hcg Plus Date Menarche Onset Age Delivery Information Delivery Date Delivery Type Labor Anesthesia Weeks Gestation Incision Type Labor Labor Length Hrs Delivered By Post Complications Tubal Sterilization Discharge Date Comments 0 28 Discharge Information Feeding Method Contraceptive Method Maternal HG B and HCT Levels Ob Episode Information Episode Created Date Number of Fetuses Patient Bloodtype Patient rh Status Prepregnancy Weight lbs Domestic Partner Domestic Partner Phone Father Name Bioprocess Development Engineer Status 12/23/19 18 1 CLOSED Fetus Data First Name Last Name Admitted to NICU Weight (g) Sex Living Outcome Pediatric Complications Fetus ID Race Codes Race Delivery Type 2721.55 2 M Prematur e 79448 Repeat Clifton Calculation Initial Clifton Date Initial Exam Date Initial Exam Provider Initial Ultrasound Date Last Menstrual Period Date Ultra Sound Weeks Gestation 0 Eighteen To Twenty Week Clifton Update Ultra Sound Date Fundal Height At Umbil Quickening Date Ultra Sound Latest Weeks Gestation Final Clifton Confirmed By Final Clifton Confirmed Date Final Clifton Date Ultra Sound Latest Days Gestation 0 0 Menstrual History Last Menstrual Date Menses Monthly On Bcp Conception Prior Menses Frequency Hcg Plus Date Menarche Onset Age Delivery Information Delivery Date Delivery Type Labor Anesthesia Weeks Gestation Incision Type Labor Labor Length Hrs Delivered By Post Complications Tubal Sterilization Discharge Date Comments 2 Local 32 false Discharge Information Feeding Method Contraceptive Method Maternal HG B and HCT Levels
--- OUTSIDE RECORDS SUMMARY | 2024-07-21 16:48 | XMS_ITS | CONTINUITY OF CARE DOCUMENT ---
Author Name krzysztof blankenship Address Unknown Organization [facility] Address [address] [place] [address] [address] [place] [address] Phone [phone] Care Team Providers Care Curing Machine Operator Name Role Phone Kelechi ARMAS, Martin Unavailable HOPKEV ALVA Unavailable [phone] HOPKEV ALVA Unavailable [phone] PROBLEMS Condition Status Date Provider Notes Syncope- nml echo 11/23, no arrythmias on telesentry active Martin Lorenz MD Depression active Martin Lorenz MD Gestational diabetes active Martin Lorenz MD GONZALEZ active Martin Lorenz MD Morbid obesity active Martin Lorenz MD Tobacco abuse active Martin Lorenz MD Cardiovascular screening completed - Martin Lorenz MD ENCOUNTERS Date Type Provider Location Encounter Diag nosis 9 - 9 In-person encounter Office Visit Martin Lorenz MD [facility] Syncope- nml echo 11/23, no arrythmias on telesentry 2 - 2 In-person encounter Office Visit Martin Lorenz MD [facility] Cardiovascular screeningSyncope- nml echo 11/23, no arrythmias on telesentryDepressionGestational diabetesOSAMorbid obesityTobacco abuse VITAL SIGNS Date Observation Value Provider Body Mass Index (Ratio) 50.48 kg/m2 Wily Lorenz MD blood pressure, diastolic 70 mm[Hg] Jonathan Varma blood pressure, systolic 126 mm[Hg] Ashley Varma pulse rate 80 /min Giovanna Varma oxygen saturation, oximetry 98 % Giovanna Healy respiratory rate E&M 18 /min Giovanna Healy blood pressure, cuff size regular Jonathan Healy weight E&M 276 [lb_av] Giovanna Healy height E&M 62 [in_i] Giovanna Avani Body Mass Index (Ratio) 50.33 kg/m2 Wily Lorenz MD blood pressure, diastolic 80 mm[Hg] Jonathan Healy blood pressure, systolic 132 mm[Hg] Ashley Healy pulse rate 74 /min Giovanna Healy oxygen saturation, oximetry 98 % Giovanna Healy respiratory rate E&M 18 /min Giovanna Healy blood pressure, cuff size regular Jonathan Varma blood pressure, resting No Renny avendano height E&M 62 [in_i] Giovanna weight E&M 275.2 [lb_av] Giovanna Lamar HISTORY OF MEDICATION USE Medication Status Instructions Dates Provider Indications Com ments VITAMIN D (ERGOCALCIFEROL) 14025 UNIT ORAL CAPSULE active one capsule by mouth weekly Martin Lorenz MD LEXAPRO 10 MG ORAL TABLET active one per day Martin Lorenz MD SOCIAL HISTORY Date Observation Value Provider social history E&M S moking History: P atient currently smokes every day. Martin Lorenz MD social history reviewed E&M revi ewed - no changes required Martin Lorenz MD smoking history, tot al pack/day .5 pk qd Giovanna Healyby cigarette use yes Giovanna Avani smoking status Current every day smoker K allan Healyby social history E&M S moking History: P atient currently smokes every day. Martin Lorenz MD social history reviewed E&M revi ewed - no changes required Martin Lorenz MD smoking history, tot al pack/day .5 pk qd Giovanna Avani cigarette use yes Giovanna Healyby smoking status Current every day smoker K allan Varma FAMILY HISTORY Family Member Condition Maternal Grandfather Family History of D iabetes: Maternal Grandmother Family History of D iabetes: Paternal Grandmother Family History of D iabetes: INSURANCE PROVIDERS Payer name Policy type / Coverage type [place] red democrat ID [facility] Medicaid [id number] TREATMENT PLAN Date Name Performer Cardiology Martin Lorenz MD Cardiology Martin Lorenz MD Cardiology Martin Lorenz MD Cardiology Martin Lorenz MD Cardiology Martin Lorenz MD Cardiology Martin Lorenz MD Cardiology Martin Lorenz MD Cardiology Martin Lorenz MD Cardiology Martin Lorenz MD Date Name Mobile Cardiac Tele Complete Echo HISTORY OF PROCEDURES Procedure Date Procedure Name Provider Procedure Notes S tatus Event Monitor Martin Lorenz MD comple ronnie EKG Martin Lorenz MD completed
--- OUTSIDE RECORDS SUMMARY | 2024-07-21 16:53 | XMS_ITS | CONTINUITY OF CARE DOCUMENT ---
Author Name krzysztof blankenship Address Unknown Organization [facility] Address [address] [place] [address] [address] [place] [address] Phone [phone] Care Team Providers Care Field Consultant Name Role Phone Kelechi ARMAS, Martin Unavailable HOPKEV ALVA Unavailable [phone] HOPKEV ALVA Unavailable [phone] PROBLEMS Condition Status Date Provider Notes Tobacco abuse active Martin Lorenz MD Morbid obesity active Martin Lorenz MD GONZALEZ active Martin Lorenz MD Gestational diabetes active Martin Lorenz MD Depression active Martin Lorenz MD Syncope- nml echo 11/23, no arrythmias on telesentry active Martin Lorenz MD Cardiovascular screening completed - Martin Lorenz MD ENCOUNTERS Date Type Provider Location Encounter Diag nosis 9 - 9 In-person encounter Office Visit Martin Lorenz MD [facility] Syncope- nml echo 11/23, no arrythmias on telesentry 2 - 2 In-person encounter Office Visit Martin Lorenz MD [facility] Cardiovascular screeningSyncope- nml echo 11/23, no [...] [in_i] Giovanna weight E&M 275.2 [lb_av] Giovanna Manton HISTORY OF MEDICATION USE Medication Status Instructions Dates Provider Indications Com ments VITAMIN D (ERGOCALCIFEROL) 23858 UNIT ORAL CAPSULE active one capsule by [...] Payer name Policy type / Coverage type [place] red libertarian ID [facility] Medicaid [id number] TREATMENT PLAN Date Name Performer Cardiology Martin [...]
== END 2024-07-21 16:54 | disposition home or self-care (01) ==
PROVIDERS: Emergency Provider Emergency Medicine
DX: S39.012A Strain of muscle, fascia and tendon of lower back, initial encounter (principal); K21.9 Gastro-esophageal reflux disease without esophagitis; F17.200 Nicotine dependence, unspecified, uncomplicated; Z90.49 Acquired absence of other specified parts of digestive tract; Z87.440 Personal history of urinary (tract) infections; X50.0XXA Overexertion from strenuous movement or load, initial encounter
CPT/HCPCS: 96372; 99283; J1885